=== PATIENT | female | born 1965 | race Two or more races ===

== ENCOUNTER 2024-07-14 07:10 | Inpatient (IN) | payer MEDICAID, OTHER ==
[~2024-07-14] VITALS: Ht 160 cm; Wt 79.1 kg
[2024-07-14 07:48] VITALS: PULSE 104; RESP 18; O2SAT 95
[2024-07-14] MEDS: ACETAMINOPHEN 325 MG TAB PO ONE (07:53)
[2024-07-14 08:23] LABS: Basophils # (auto) 0.1 10 ^3/uL (0-0.2); Basophils % (auto) 1.3 % (0.0-2.0); Eosinophils # (auto) 0 10 ^3/uL (0-0.8); Hematocrit 33.4 % (36.0-46.0); Hemoglobin 11.6 g/dL (12.2-16.2); Lymphocytes # (auto) 1.1 10 ^3/uL (0.4-5.4); Lymphocytes % (auto) 12.3 % (10.0-50.0); Mean Corpuscular Hemoglobin 27.9 pg (28.0-32.0); Mean Corpuscular Hgb Conc. 34.6 g/dL (32.0-36.0); Mean Corpuscular Volume 80.7 fL (80.0-100.0); Monocytes % (auto) 10.7 % (0.0-12.0); Neutrophils # (auto) 6.7 10 ^3/uL (1.6-8.6); Neutrophils % (auto) 75.7 % (37.0-80.0); Platelet Count (auto) 160 10^3/uL (140-450); Red Blood Cells 4.14 10^6/uL (4.0-5.20); Red Cell Distribution Width 15.8 % (11.8-14.3); White Blood Cell 8.9 10^3/uL (4.4-10.8)
[2024-07-14 08:24] LABS: Chloride 100 mmol/L (98-107); Potassium 4.3 mmol/L (3.5-5.1)
[2024-07-14 08:25] LABS: Anion Gap 9 (5-15); Carbon Dioxide 20 mmol/L (20-31)
[2024-07-14 08:26] LABS: Calcium 10.2 mg/dL (8.7-10.4)
[2024-07-14 08:29] LABS: Sodium 129 mmol/L (136-145)
[2024-07-14 08:30] LABS: BUN/Creatinine Ratio 14.5 (10.0-20.0); Blood Urea Nitrogen 11 mg/dL (9-23)
--- NOTE | 2024-07-14 08:30 | DVH ---
EXAM: CT HEAD WITHOUT CONTRAST HISTORY: DIZZINESS COMPARISON: None TECHNIQUE: Axial images of the head were obtained and reformatted in coronal and sagittal planes. All CT scans at this medical facility are performed using dose modulation techniques as appropriate t o a performed exam including the following: Automated exposure control was utilized; adjustment of th e MA and/or KV according to patient size; and use of iterative reconstruction technique. CT Dose: CTDI volume is 48 mGy. Dose-length product is 799 mGy*cm FINDINGS: There is no evidence of acute intracranial hemorrhage, mass, mass effect midline shift. There is no h ydrocephalus or extra-axial fluid collection. Rivera-white matter differentiation is maintained. The visualized paranasal sinuses and mastoid air cells are clear. The calvarium is intact. IMPRESSION: 1. No acute intracranial process. HS:Y
--- NOTE | 2024-07-14 08:32 | ED.PDOC ---
Ariana. trauma (HPI) HPI Comments 58-year-old female, brought in by daughter, with past medical history of epilepsy and dementia presents in the emergency department for chief complaint of generalized weakness. Per patient's daughter, patient has been experiencing increasing symptoms of disorientation, confusion, and unsteadiness x1day. Daughter endorses, patient is unable to ambulate with steady gait and frequently falls over when using the restroom. Per Patient's daughter, this is not patients baseline and is unaware if patient has had seizure in the past couple of days resulting in increased disorientation. No other symptoms or modifiers present at this time. Time Seen by MD: 07:20 Reviewed notes: Nurses Notes, Medications, Allergies Allergies: Coded Allergies: Belladonna (Verified Allergy, Unknown, 07/14/24) Home Meds Reported Medications Chlorthalidone (Chlorthalidone) 25 Mg Tab, 1 TAB PO DAILY 07/14/24 Pantoprazole Sodium Sesquihydr (Pantoprazole Sodium) 40 Mg Tab, 1 TAB PO DAILY 07/14/24 Atorvastatin Calcium (ATORVASTATIN CALCIUM) 20 Mg Tab, 1 TAB PO DAILY 07/14/24 Semaglutide (Rybelsus) 3 Mg Tab, 1 TAB PO DAILY 07/14/24 Information Source: Patient Mode of Arrival: Ambulatory Severity: Moderate Timing: Days Duration: Since onset Prehospital treatment: None Location: None Location of laceration: None Associated signs and symtoms: None Past Medical History PAST MEDICAL HISTORY: Denies Surgical History: Denies all surgeries 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 Family History Family History: Unknown Social History Smoker: Non-Smoker Alcohol: Denies ETOH Use Drugs: Denies Drug Use Lives In: Home All Other Systems: Reviewed and Negative ( PER HPI) Physical Exam General Appearance: No Apparent Distress, Normal HEENT: Normal ENT Inspection, Pharynx Normal Neck: Full Range of Motion, Non-Tender, Normal, Normal Inspection Respiratory: Chest Non-Tender, Lungs Clear, No Accessory Muscle Use, No Respiratory Distress, Normal Breath Sounds Cardiovascular: No Edema, No Murmur, No Gallop, Normal Peripheral Pulses, Regular Rate/Rhythm Breast Exam: Deferred Gastrointestinal: No Organomegaly, Non Tender, No Pulsatile Mass, Normal Bowel Sounds, Soft Genitalia: Deferred Pelvic: Deferred Rectal: Deferred Extremities: No calf tenderness, Normal capillary refill, Normal inspection, Normal range of motion, Non-tender, No pedal edema Musculoskeletal : Apperance: Normal Neurologic: Alert, No Motor Deficits, Normal Affect, Normal Mood, No Sensory Deficits, Other (Unclear speech. Difficult to understand the patient. No facial droop no slurred speech. Moving all extremities. 5/5 strength bilateral upper and lower extremities.) Cerebellar Function: Normal Reflexes: Normal Skin: Dry, Normal Color, Warm Lymphatic: No Adenopathy Was a procedure done? Was a procedure done?: No EKG EKG : Comments Sinus tachycardia rate of 102, no significant ST changes. Differential Diagnosis Multiple Trauma: N/A Neck Injury: N/A X-Ray, Labs, Meds, VS Vital Signs Date Time Temp Pulse Resp B/P (MAP) Pulse Ox O2 Delivery O2 Flow Rate FiO2 07/14/24 07:53 102 07/14/24 07:53 100.7 07/14/24 07:48 104 18 95 Room Air* 0 21 07/14/24 07:48 100.7 104 18 138/75 (96) 95 100.7 07/14/24 07:48 100.7 104 18 138/75 (96) 95 100.7 Lab Test 07/14/24 08:53 07/14/24 08:00 Range/Units Troponin I High Sensitivity 4 5 </=34 ng/L White Blood Count 8.9 4.4-10.8 10^3/uL Red Blood Count 4.14 4.0-5.20 10^6/uL Hemoglobin 11.6 L 12.2-16.2 g/dL Hematocrit 33.4 L 36.0-46.0 % Mean Corpuscular Volume 80.7 80.0-100.0 fL Mean Corpuscular Hemoglobin 27.9 L 28.0-32.0 pg Mean Corpuscular Hemoglobin Concent 34.6 32.0-36.0 g/dL Red Cell Distribution Width 15.8 H 11.8-14.3 % Platelet Count 160 140-450 10^3/uL Mean Platelet Volume 9.6 6.9-10.8 fL Neutrophils (%) (Auto) 75.7 37.0-80.0 % Lymphocytes (%) (Auto) 12.3 10.0-50.0 % Monocytes (%) (Auto) 10.7 0.0-12.0 % Eosinophils (%) (Auto) 0.0 0.0-7.0 % Basophils (%) (Auto) 1.3 0.0-2.0 % Neutrophils # (Auto) 6.7 1.6-8.6 10 ^3/uL Lymphocytes # (Auto) 1.1 0.4-5.4 10 ^3/uL Monocytes # (Auto) 1.0 0-1.3 10 ^3/uL Eosinophils # (Auto) 0 0-0.8 10 ^3/uL Basophils # (Auto) 0.1 0-0.2 10 ^3/uL Nucleated Red Blood Cells 0.0 % Sodium Level 129 L 136-145 mmol/L Potassium Level 4.3 3.5-5.1 mmol/L Chloride Level 100 98-107 mmol/L Carbon Dioxide Level 20 20-31 mmol/L Anion Gap 9 5-15 Blood Urea Nitrogen 11 9-23 mg/dL Creatinine 0.76 0.550-1.02 mg/dL Glomerular Filtration Rate Calc 91 >90 mL/min BUN/Creatinine Ratio 14.5 10.0-20.0 Serum Glucose 115 H 74-106 mg/dL Calcium Level 10.2 8.7-10.4 mg/dL Current Medications Medications (Trade) Dose Ordered Sig/Elizabet Route Start Time Stop Time Status Last Admin Acetaminophen (Tylenol Tablet) 650 mg ONCE ONCE PO 07/14/24 07:45 07/14/24 07:47 DC 07/14/24 07:53 [place] [id number] Ph: [phone] DIAGNOSTIC IMAGING Diagnostic Imaging Report : [id number] Signed PATIENT: ANNIA MCINTOSH LACCT: [id number] UNIT: [id number] : 1965 LOC: ER ROOM / BED: / AGE / SEX: 58 / F ADM STATUS: REG ER SERVICE [id number] ORDERING PHYSICIAN: TATI DRISCOLL MD PROCEDURE(s): HWOCT - HEAD WITHOUT CONTRAST REASON: DIZZINESS ORDER NUMBER(s): [id number], ACCESSION NUMBER(s): [id number] EXAM: CT HEAD WITHOUT CONTRAST HISTORY: DIZZINESS COMPARISON: None TECHNIQUE: Axial images of the head were obtained and reformatted in coronal and sagittal planes. All CT scans at this medical facility are performed using dose modulation techniques as appropriate to a performed exam including the following: Automated exposure control was utilized; adjustment of the MA and/or KV according to patient size; and use of iterative reconstruction technique. CT Dose: CTDI volume is 48 mGy. Dose-length product is 799 mGy*cm FINDINGS: There is no evidence of acute intracranial hemorrhage, mass, mass effect midline shift. There is no hydrocephalus or extra-axial fluid collection. Rivera-white matter differentiation is maintained. The visualized paranasal sinuses and mastoid air cells are clear. The calvarium is intact. IMPRESSION: 1. No acute intracranial process. HS:Y ATED BY: JOSÉ MIGUEL YEUNG MD DICTATED DATE/TIME: 07/14/24827 SIGNED BY: JOSÉ MIGUEL YEUNG MD SIGNED DATE/TIME: 07/14/24827 CC: 58-year-old female presents here status post falls. Daughter states x1 day she has been acutely more confused and having frequent falls. She states anytime she gets up to go urinate she then falls. She states this is unlike her at this time blood work has been done which is largely unremarkable. Urine with no evidence of infection. CT scan of the brain has been done with no evidence of hemorrhage. At this time the exact cause of her acute confusion and falls is unclear. At this time medical team has been consulted for admission. She does have a known history of seizures it is possible she is having micro seizures. Patient took her regular dose of valproic acid in the ER per my order. Time of 1ST Reevaluation: 09:20 Reevaluation 1ST: Unchanged Patient Education/Counseling: Diagnosis, Treatment Family Education/Counseling: No Family Present Departure 1 Departure Time of Disposition: 08:26 Impression: Primary Impression: Fall Qualified Codes: W19.XXXA - Unspecified fall, initial encounter Additional Impression: Encephalopathy Qualified Codes: G93.40 - Encephalopathy, unspecified Disposition: 09 ADMITTED INPATIENT Condition: Fair Critical Care Note Critical Care Time?: No Stability Stability form required: No Heart Score Heart Score: Heart Score Response (Comments) Value History N/A 0 EKG N/A 0 Age N/A 0 Risk Factors N/A 0 Troponin N/A 0 Total 0 I personally scribed for TATI DRISCOLL MD ([email or web address]) on 07/14/24 at 08:36. Electronically submitted by Clara Payan ([email or web address]). I personally scribed for TATI DRISCOLL MD ([email or web address]) on 07/14/24 at 13:19. Electronically submitted by Clara Payan ([email or web address]). TATI DRISCOLL MD Jul 14, 2024 08:32
[2024-07-14 08:33] LABS: Glucose 115 mg/dL (74-106)
[2024-07-14] MEDS ORDERED: ONDANSETRON HCL 4 MG/2 ML VIAL IV PRN (09:00)
[2024-07-14] MEDS ORDERED: NITROGLYCERIN 0.4 MG SL TAB SL PRN (09:00)
[2024-07-14] MEDS ORDERED: SODIUM CHLORIDE 0.9% 1,000 ML IV SCH (09:00)
[2024-07-14] MEDS ORDERED: SEMA3TAB2 PO (09:27)
[2024-07-14] MEDS ORDERED: PANT40T PO (09:27)
[2024-07-14] MEDS ORDERED: CHLO25TA2 PO (09:27)
[2024-07-14] MEDS ORDERED: ATOR20TA50 PO (09:27)
--- NOTE | 2024-07-14 09:46 | DVHHP2 ---
History of Present Illness Reason for Visit: Dizziness and weakness History of Present Illness Vannesa Nation is a 58-year-old female with past medical history of epilepsy, dementia, , and tonsillectomy who presents to the ED with dizziness, weakness, disorientation, confusion, and unsteadiness for the last 2 days. Patient's daughter Jacklyn the bedside states that her mom the last 2 weeks has been falling. She states that the other sister lives with her mom. Upon examination when asked patient questions about her name date of she states that she does not remember. Patient is awake and answering questions just unable to tell me her name and date of . Patient's daughter also states the patient has been seeing a psychiatrist regarding her medications and her complaints of auditory and visual hallucina tions. She reports that the psychiatrist has been adjusting her medications due to the side effects that it has been causing her mom. Patient is declining any pain throughout her body. Patient's daughter reported that she had some nausea for the last 2 days and has not been eating well. Patient denies any recent travels, recent sick contacts, recent ingestion of spoiled food, chest pain, shortness of breath, fever, chills, abdominal pain, nausea, vomiting, or urinary symptoms. Daughter also states that her mom's still vapes and is a recovering addict for the last 4 years. 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) Past Surgical History: , Tonsillectomy Family History: DM, Other (Dad with brain tumor and diabetes) Smoke: <1 pack per day (Vapes) ALCOHOL: none (Quit) Drugs: None (Quit) Lives: with Family Domestic Violence: Neg Review of Systems Constitutional: Yes: Weakness, Other (Disorientation and unsteadiness) Neurological: Confusion Allergies: Coded Allergies: Belladonna (Verified Allergy, Unknown, 07/14/24) Medications Current Medications Medications Dose Ordered Sig/Elizabet Route Start Time Stop Time Status Last Admin Dose Admin Sodium Chloride 1,000 ml @ 100 mls/hr Q10H IV 07/14/24 09:00 UNV Ondansetron HCl 4 mg Q4HP PRN IV 07/14/24 09:00 UNV Acetaminophen 650 mg Q6HP PRN PO 07/14/24 09:00 UNV Nitroglycerin 0.4 mg Q5MINP PRN SL 07/14/24 09:00 UNV Morphine Sulfate 2 mg Q30M PRN IV 07/14/24 09:00 UNV Atorvastatin Calcium 20 mg DAILY PO 07/14/24 10:00 UNV Chlorthalidone 25 mg DAILY PO 07/14/24 10:00 UNV Pantoprazole Sodium 40 mg DAILY PO 07/14/24 10:00 UNV Patient Own Medication 1 tab DAILY PO 07/14/24 10:00 UNV Exam Vital Signs Vital Signs Date Time Temp Pulse Resp B/P (MAP) Pulse Ox O2 Delivery O2 Flow Rate FiO2 07/14/24 07:53 102 07/14/24 07:53 100.7 07/14/24 07:48 18 95 Room Air* 0 21 07/14/24 07:48 138/75 (96) General Appearance: Alert, Cooperative, No acute distress HEENT: Atraumatic, PERRLA, EOMI, Mucous membr. moist/pink Respiratory: Normal air movement Cardiovascular: Normal S1, Normal S2 Abdominal: Soft Extremities: No clubbing, No cyanosis, Normal pulses Neuro: Normal speech, Normal tone, Sensation intact Psych/Mental Status: Mood NL Labs/Xrays Labs Test 07/14/24 08:53 07/14/24 08:00 Range/Units Troponin I High Sensitivity 4 </=34 ng/L White Blood Count 8.9 4.4-10.8 10^3/uL Red Blood Count 4.14 4.0-5.20 10^6/uL Hemoglobin 11.6 L 12.2-16.2 g/dL Hematocrit 33.4 L 36.0-46.0 % Mean Corpuscular Volume 80.7 80.0-100.0 fL Mean Corpuscular Hemoglobin 27.9 L 28.0-32.0 pg Mean Corpuscular Hemoglobin Concent 34.6 32.0-36.0 g/dL Red Cell Distribution Width 15.8 H 11.8-14.3 % Platelet Count 160 140-450 10^3/uL Mean Platelet Volume 9.6 6.9-10.8 fL Neutrophils (%) (Auto) 75.7 37.0-80.0 % Lymphocytes (%) (Auto) 12.3 10.0-50.0 % Monocytes (%) (Auto) 10.7 0.0-12.0 % Eosinophils (%) (Auto) 0.0 0.0-7.0 % Basophils (%) (Auto) 1.3 0.0-2.0 % Neutrophils # (Auto) 6.7 1.6-8.6 10 ^3/uL Lymphocytes # (Auto) 1.1 0.4-5.4 10 ^3/uL Monocytes # (Auto) 1.0 0-1.3 10 ^3/uL Eosinophils # (Auto) 0 0-0.8 10 ^3/uL Basophils # (Auto) 0.1 0-0.2 10 ^3/uL Nucleated Red Blood Cells 0.0 % Sodium Level 129 L 136-145 mmol/L Potassium Level 4.3 3.5-5.1 mmol/L Chloride Level 100 98-107 mmol/L Carbon Dioxide Level 20 20-31 mmol/L Anion Gap 9 5-15 Blood Urea Nitrogen 11 9-23 mg/dL Creatinine 0.76 0.550-1.02 mg/dL Glomerular Filtration Rate Calc 91 >90 mL/min BUN/Creatinine Ratio 14.5 10.0-20.0 Serum Glucose 115 H 74-106 mg/dL Calcium Level 10.2 8.7-10.4 mg/dL EXAM: CT HEAD WITHOUT CONTRAST HISTORY: DIZZINESS COMPARISON: None TECHNIQUE: Axial images of the head were obtained and reformatted in coronal and sagittal planes. All CT scans at this medical facility are performed using dose modulation techniques as appropriate to a performed exam including the following: Automated exposure control was utilized; adjustment of the MA and/or KV according to patient size; and use of iterative reconstruction technique. CT Dose: CTDI volume is 48 mGy. Dose-length product is 799 mGy*cm FINDINGS: There is no evidence of acute intracranial hemorrhage, mass, mass effect midline shift. There is no hydrocephalus or extra-axial fluid collection. Rivera-white matter differentiation is maintained. The visualized paranasal sinuses and mastoid air cells are clear. The calvarium is intact. IMPRESSION: 1. No acute intracranial process. Assessment/Plan Assessment/Plan Assessment Autonomic imbalance Generalized weakness Failure to thrive Hyponatremia Pyrexia Vape use History of polysubstance abuse and recovering addict for the last 4 years History of epilepsy History of dementia ? Schizophrenia versus depression versus with a psychological issue Plan Admit to med surge Antipyretics Troponin noted EKG CT head noted UA pending Orthostatics Ultrasound carotid Echo ordered IV fluids Repeat BMP Lactic level Blood cultures Chest x-ray ordered Diet Patient's daughter will clarify which medications the patient is currently taking as medications have been adjusted by psychiatrist PT eval DVT prophylaxis-Lovenox PUD prophylaxis-H2 blockers Discussed plan of care with patient, patient's daughter, and nurse Dietary consult Counseled patient on continuous cessation of polysubstance use Counseled patient on cessation of a abuse Plan discussed with: Patient, Daughter My Orders Orders - MARSHA PUGA 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 Procedure Category Date Status Time Echo 2d Mode Cardiac US 07/14/24 Logged DOP 08:58 Carotid Duplx W Color US 07/14/24 Logged DOP 08:58 Orthostatic Vital ORDERS 07/14/24 Transmitted Signs 08:58 Sodium Chloride 0.9% PHA 07/14/24 Logged 09:00 Admit ADMIT 07/14/24 Transmitted 08:58 Allergies TIFFANIE 07/14/24 In Process 08:58 Code Status CODE 07/14/24 Transmitted 08:58 Ondansetron Hcl PHA 07/14/24 Logged (Zofran) 09:00 Complete Blood Count LAB 07/15/24 Verified 04:00 Comprehensive LAB 07/15/24 Verified Metabolic Panel 04:00 Cardiac DIET 07/14/24 Transmitted Diet-2gna,Lofat,Lochol Breakfast Acetaminophen Tablet PHA 07/14/24 Logged (Tylenol Tablet) 09:00 Nitroglycerin PHA 07/14/24 Logged Sublingual (Ntrostat 09:00 Morphine Sulfate PHA 07/14/24 Logged Injection 09:00 Stat Ekg For Chest TIFFANIE 07/14/24 In Process Pain 08:58 Notify Of Changes [facility] 07/14/24 In Process From Base 08:58 Slip Cover Maker For TIFFANIE 07/14/24 In Process 24 Hours 08:58 Emergency Dysrhythmia TIFFANIE 07/14/24 In Process Protocol 08:58 Rhythm Strips Once [facility] 07/14/24 In Process Every Shift 08:58 Oxygen By Nasal RT 07/14/24 Transmitted Cannula 08:58 Lactic Acid W/ Reflex LAB 07/14/24 Logged Order 08:58 Blood Culture NEREYDA 07/14/24 Logged 08:58 Chest Xray 1 View XY 07/14/24 Logged 08:58 Atorvastatin (Lipitor) PHA 07/14/24 Logged 10:00 Chlorthalidone PHA 07/14/24 Logged (Chlorthalidone) 10:00 Pantoprazole Tablet PHA 07/14/24 Logged (Protonix Tablet) 10:00 (Nf) Semaglutide PHA 07/14/24 Logged (Rybelsus) 10:00 NS PHA 07/14/24 Verified 09:30 Basic Metabolic Panel LAB 07/14/24 Verified 14:00 Communication Order ORDERS 07/14/24 Verified 09:28 Date of Service: Jul 14, 2024 Billing Provider: MARSHA PUGA Common Visit Codes: [id number] INP/OBS CARE (HIGH) MARSHA PUGA Jul 14, 2024 09:46
[2024-07-14] MEDS ORDERED: MORPHINE SULFATE 4 MG/ML SYR/VIAL IV PRN (10:00)
--- NOTE | 2024-07-14 10:06 | DVH ---
XY CHEST XRAY 1 VIEW, HISTORY: r/o pna COMPARISON: None None TECHNICAL DATA: 1 view of the chest was obtained. FINDINGS: Lines and tubes: None Cardiomediastinal silhouette: normal Pulmonary vasculature: normal Lung expansion: normal Lung airspace: normal Lung interstitium: normal Pleura: normal Pneumothorax: no Bones: Unremarkable Other: no IMPRESSION: No acute intrathoracic abnormality.
[2024-07-14] MEDS: FAMOTIDINE (10MG/ML) 2ML VL IV SCH (10:12)
[2024-07-14] MEDS: PANTOPRAZOLE 40 MG TAB PO SCH (10:13)
[2024-07-14] MEDS: SEMAGLUTIDE 3 MG PO SCH (10:13)
[2024-07-14] MEDS: ENOXAPARIN SOD 40 MG/0.4 ML SYRINGE SC SCH (10:14)
[2024-07-14] MEDS: CHLORTHALIDONE 25 MG TAB PO SCH (10:21)
[2024-07-14] MEDS: SODIUM CHLORIDE 0.9% 1,000 ML IV SCH (10:22)
[2024-07-14] MEDS: ACETAMINOPHEN 325 MG TAB PO PRN (13:46)
[2024-07-14 14:23] LABS: Chloride 99 mmol/L (98-107); Potassium 4.1 mmol/L (3.5-5.1)
[2024-07-14 14:24] LABS: Anion Gap 8 (5-15); Carbon Dioxide 22 mmol/L (20-31)
[2024-07-14 14:25] LABS: Calcium 9.6 mg/dL (8.7-10.4); Sodium 129 mmol/L (136-145)
[2024-07-14 14:28] LABS: Urine Bacteria FEW /hpf (None Seen); Urine Blood TRACE /uL (Negative); Urine Clarity Clear (Clear); Urine Color Dark-Yellow (Yellow); Urine Protein, UAD 1+ (Negative); Urine Squamous Epithelial Cell FEW /hpf (<5); Urine Urobilinogen 6 mg/dL (Negative); Urine WBC 1 /HPF (0-5); Urine pH 6.5 (5.0-9.0)
[2024-07-14 14:30] LABS: BUN/Creatinine Ratio 11.8 (10.0-20.0); Glucose 106 mg/dL (74-106)
[2024-07-14 14:31] LABS: Blood Urea Nitrogen 9 mg/dL (9-23)
--- NOTE | 2024-07-14 14:56 | DVH ---
US CAROTID DOPPLER CLINICAL INDICATION: r/o occlusion TECHNIQUE: Multiple grayscale, color Doppler and spectral Doppler ultrasound images were obtained thr oughout both carotid systems. COMPARISON: None FINDINGS: RIGHT: CCA PSV: 77 cm/s ECA PSV: 66 cm/s ICA PSV: 74 cm/s ICA EDV: 16 cm/s ICA/CCA Ratio: 1.0 Vertebral artery: Patent, antegrade flow. Grayscale images demonstrate no significant plaque or visible stenosis. Spectral analysis demonstrate s no hemodynamically significant CCA or ICA stenosis. LEFT: CCA PSV: 108 cm/s ECA PSV: 145 cm/s ICA PSV: 97 cm/s ICA EDV: 24 cm/s ICA/CCA Ratio: 0.9 Vertebral artery: Patent, antegrade flow. Grayscale images demonstrate no significant plaque or visible stenosis. Spectral analysis demonstrate s no hemodynamically significant CCA or ICA stenosis. IMPRESSION: No evidence of hemodynamically significant CCA or ICA stenosis.
[2024-07-14 16:53] LABS: Chloride 102 mmol/L (98-107); Potassium 3.6 mmol/L (3.5-5.1)
[2024-07-14 16:54] LABS: Anion Gap 6 (5-15); Carbon Dioxide 22 mmol/L (20-31)
[2024-07-14 16:55] LABS: Calcium 8.9 mg/dL (8.7-10.4)
[2024-07-14 16:59] LABS: BUN/Creatinine Ratio 17.6 (10.0-20.0); Blood Urea Nitrogen 12 mg/dL (9-23)
[2024-07-14 17:00] LABS: Glucose 109 mg/dL (74-106); Sodium 130 mmol/L (136-145)
[2024-07-14] MEDS ORDERED: PHEN1CAP38 PO (18:35)
[2024-07-14] MEDS ORDERED: DIVA500T13 PO (18:35)
[2024-07-14] MEDS: IBUPROFEN 400 MG TAB PO PRN (20:15)
[2024-07-14] MEDS: ACETAMINOPHEN IV 1000 MG/100ML (10MG/ML) IV ONE (20:32)
[2024-07-14] MEDS: cefTRIAXone 1GM/50ML D5W 50 ML IV SCH (20:36)
[2024-07-14 21:13] LABS: Anion Gap 6 (5-15); BUN/Creatinine Ratio 14.5 (10.0-20.0); Blood Urea Nitrogen 9 mg/dL (9-23); Carbon Dioxide 21 mmol/L (20-31); Chloride 103 mmol/L (98-107); Glucose 104 mg/dL (74-106); Potassium 3.6 mmol/L (3.5-5.1)
[2024-07-14 21:18] LABS: Alanine Aminotransferase 164 U/L (7-40); Albumin 2.8 g/dL (3.2-4.8); Alkaline Phosphatase 146 U/L (46-116); Aspartate Aminotransferase 254 U/L (13-40); Bilirubin, Total 2.6 mg/dL (0.2-1.0); Sodium 130 mmol/L (136-145); Total Protein 5.5 g/dL (5.7-8.2)
[2024-07-14 21:28] VITALS: BP 105/50; PULSE 56; RESP 18; TEMP 97.6; O2SAT 96
[2024-07-14] MEDS ORDERED: [UNRECOGNIZED DRUG - CODE] PO (22:12)
[2024-07-14] MEDS ORDERED: FLUT1INH2 INH (22:12)
[2024-07-14] MEDS ORDERED: ALBU108A5 INH (22:12)
[2024-07-14] MEDS ORDERED: BUSP15TA60 PO (22:12)
[2024-07-14] MEDS ORDERED: [UNRECOGNIZED DRUG - CODE] PO (22:12)
[2024-07-14] MEDS ORDERED: SPIR25TA8 PO (22:12)
[2024-07-14] MEDS ORDERED: HYDR50CA2 PO (22:12)
[2024-07-14] MEDS ORDERED: ARIP10TA30 PO (22:12)
[2024-07-14] MEDS: ATORVASTATIN 20 MG TAB PO SCH (23:07)
[2024-07-15] VITALS (7 sets, daily range): BP systolic 92–133; BP diastolic 44–62; PULSE 51–86; RESP 14–20; TEMP 97.1–101.2; O2SAT 94–99
[2024-07-15 05:39] LABS: Basophils # (auto) 0 10 ^3/uL (0-0.2); Basophils % (auto) 0.4 % (0.0-2.0); Eosinophils # (auto) 0 10 ^3/uL (0-0.8); Eosinophils % (auto) 0.1 % (0.0-7.0); Hematocrit 29.3 % (36.0-46.0); Hemoglobin 9.9 g/dL (12.2-16.2); Lymphocytes # (auto) 0.6 10 ^3/uL (0.4-5.4); Lymphocytes % (auto) 8.1 % (10.0-50.0); Mean Corpuscular Hemoglobin 27.8 pg (28.0-32.0); Mean Corpuscular Hgb Conc. 33.7 g/dL (32.0-36.0); Mean Corpuscular Volume 82.5 fL (80.0-100.0); Monocytes # (auto) 0.6 10 ^3/uL (0-1.3); Monocytes % (auto) 8.8 % (0.0-12.0); Neutrophils % (auto) 82.6 % (37.0-80.0); Platelet Count (auto) 121 10^3/uL (140-450); Red Blood Cells 3.55 10^6/uL (4.0-5.20); Red Cell Distribution Width 15.9 % (11.8-14.3); White Blood Cell 7.3 10^3/uL (4.4-10.8)
[2024-07-15 05:58] LABS: Anion Gap 5 (5-15); BUN/Creatinine Ratio 14.3 (10.0-20.0); Blood Urea Nitrogen 10 mg/dL (9-23); Calcium 9.1 mg/dL (8.7-10.4); Carbon Dioxide 23 mmol/L (20-31); Chloride 104 mmol/L (98-107); Glucose 93 mg/dL (74-106); Potassium 3.9 mmol/L (3.5-5.1)
[2024-07-15 05:59] LABS: Alanine Aminotransferase 144 U/L (7-40); Albumin 2.7 g/dL (3.2-4.8); Alkaline Phosphatase 145 U/L (46-116); Aspartate Aminotransferase 192 U/L (13-40); Sodium 132 mmol/L (136-145); Total Protein 5.4 g/dL (5.7-8.2)
[2024-07-15 06:01] LABS: Bilirubin, Total 2.2 mg/dL (0.2-1.0)
[2024-07-15 10:23] LABS: Anion Gap 7 (5-15); Calcium 8.9 mg/dL (8.7-10.4); Carbon Dioxide 23 mmol/L (20-31); Chloride 104 mmol/L (98-107); Potassium 3.5 mmol/L (3.5-5.1); Sodium 134 mmol/L (136-145)
[2024-07-15 10:29] LABS: BUN/Creatinine Ratio 14.8 (10.0-20.0)
[2024-07-15 10:36] LABS: Blood Urea Nitrogen 9 mg/dL (9-23); Glucose 106 mg/dL (74-106)
--- NOTE | 2024-07-15 15:52 | DVHPN2 ---
Subjective I am assuming the care of the patient from today onwards who was under the care of the hospitalist team. CT head is negative. Patient is here for multiple falls as well as disorientation. Patient does have underlying Alzheimer dementia Reviewed: Care Plan Changes from previous H/P or p: No Changes Objective Vitals Vital Signs Date Time Temp Pulse Resp B/P (MAP) Pulse Ox O2 Delivery O2 Flow Rate FiO2 07/15/24 08:30 97.1 70 14 98/62 (74) 97 97.1 07/15/24 08:00 Room Air* 0 21 Intake/Output Intake and Output 07/15/24 07:00 Intake Total 4500 ml Balance 4500 ml Intake Oral 100 ml IV Total 4400 ml Exam HEENT pupils are reactive Neck is supple CV is S1-S2 regular rate and rhythm Respiratory diminished breath sounds bases GI positive bowel sound Extremity no edema DETECTIVE CAPTAIN minimally following commands Medications Current Medications Medications Dose Ordered Sig/Elizabet Route Start Time Stop Time Status Last Admin Dose Admin Ondansetron HCl 4 mg Q4HP PRN IV 07/14/24 09:00 Acetaminophen 650 mg Q6HP PRN PO 07/14/24 09:00 07/14/24 13:46 650 MG Nitroglycerin 0.4 mg Q5MINP PRN SL 07/14/24 09:00 Morphine Sulfate 2 mg Q30M PRN IV 07/14/24 10:00 Atorvastatin Calcium 20 mg HS PO 07/14/24 22:00 07/14/24 23:07 20 MG Chlorthalidone 25 mg DAILY PO 07/14/24 10:00 07/15/24 09:02 25 MG Pantoprazole Sodium 40 mg DAILY PO 07/14/24 10:00 07/15/24 09:02 40 MG Patient Own Medication 1 tab DAILY PO 07/14/24 10:00 07/14/24 10:13 1 TAB Sodium Chloride 1,000 ml @ 200 mls/hr Q5H IV 07/14/24 09:30 07/15/24 12:43 200 MLS/HR Enoxaparin Sodium 40 mg DAILY SC 07/14/24 10:00 07/15/24 11:34 40 MG Famotidine 20 mg DAILY IV 07/14/24 10:00 07/15/24 09:01 20 MG Ibuprofen 400 mg Q6HP PRN PO 07/14/24 18:45 07/14/24 20:15 400 MG Ceftriaxone Sodium 50 ml @ 100 mls/hr DAILY@09 IV 07/14/24 20:30 07/15/24 09:01 100 MLS/HR Laboratory Results Laboratory Tests 07/15/24 05:06 07/15/24 09:45 Chemistry Test 07/14/24 16:25 07/14/24 20:38 07/15/24 05:06 07/15/24 09:45 Calcium Level 8.9 mg/dL (8.7-10.4) 9.0 mg/dL (8.7-10.4) 9.1 mg/dL (8.7-10.4) 8.9 mg/dL (8.7-10.4) Albumin 2.8 g/dL (3.2-4.8) L 2.7 g/dL (3.2-4.8) L Total Protein 5.5 g/dL (5.7-8.2) L 5.4 g/dL (5.7-8.2) L LFT Test 07/14/24 20:38 07/15/24 05:06 Alanine Aminotransferase (ALT) 164 U/L (7-40) H 144 U/L (7-40) H Alkaline Phosphatase 146 U/L (46-116) H 145 U/L (46-116) H Aspartate Amino Transferase (AST) 254 U/L (13-40) H 192 U/L (13-40) H Total Bilirubin 2.6 mg/dL (0.2-1.0) H 2.2 mg/dL (0.2-1.0) H Urinalysis Test 07/14/24 14:08 Urine Color Dark-yellow (Yellow) Urine Clarity Clear (Clear) Urine pH 6.5 (5.0-9.0) Urine Specific [place] 1.020 (1.001-1.035) Urine Protein 1+ (Negative) H Urine Ketones Negative (Negative) Urine Blood Trace /uL (Negative) H Urine Nitrite Negative (Negative) Urine Bilirubin 2+ (Negative) H Urine Urobilinogen 6 mg/dL (Negative) Urine Leukocyte Esterase Negative /uL (Negative) Urine RBC 5 /hpf (0 - 4) Urine Microscopic WBC 1 /HPF (0-5) Urine Squamous Epithelial Cells Few /hpf (<5) Urine Bacteria Few /hpf (None Seen) H Urine Glucose Normal mg/dL (Normal) Microbiology Microbiology Date/Time Source Procedure Growth Status 07/14/24 09:40 Blood Blood Culture - Preliminary NO GROWTH AFTER 24 HOURS OF INCUBATION. Resulted Assessment/Plan Assessment/Plan 58-year-old female with a known history of epilepsy, Alzheimer dementia, with a previous history of polysubstance abuse presented to the hospital with a generalized weakness and multiple falls found to have 1. Generalized weakness 2. Recurrent falls, check TSH RPR vitamin B12 and folic acid 3. Transaminitis, hold atorvastatin, right upper quadrant abdominal ultrasound and check acute hepatitis panel. 4. Epilepsy 5. Alzheimer dementia 6. Previous history of polysubstance abuse -check orthostatic vitals, check TSH, RPR, vitamin B12-, folic acid, neurology consultation Physical therapy evaluation and treatment. Plan discussed with: Patient, Other My Orders Orders - RAMESH JEFFERY MD Procedure Category Date Status Time * Neurology Consult CONS 07/15/24 Transmitted 15:48 Date of Service: Jul 15, 2024 Billing Provider: RAMESH JEFFERY MD Common Visit Codes: [id number] INP/OBS CARE(HIGH) RAMESH JEFFERY MD Jul 15, 2024 15:52
--- NOTE | 2024-07-15 19:09 | DVHSR ---
APPROVED REPORT EXAM: Two-dimensional and M-mode echocardiogram with Doppler and color Doppler. Blood Pressure: 92/52 mmHg INDICATION Dizziness and Vertigo RISK FACTORS Height: 5'3, Weight: 174 DIMENSIONS LVDd4.4 (3.8-5.7cm)LA (2D)3.9 (1.9-4.0cm)Aortic Root3.0 (2.0-3.7cm) LVDs3.0 (2.5-4.0cm)LA (MM) (1.9-4.0cm)Aortic Cusp Exc1.6 (1.5-2.0cm) EF (%) 55.0 (55-70%)Rt. Atrium3.4 (1.9-4.0cm)Asc. Aorta cm IVSd1.0 (0.7-1.1cm)RV (D)5.5 (1.8-2.4cm) PWd0.9 (0.7-1.1cm) Mitral Valve MitralMitral Stenosis E wave0.94m/sMV Mean GR.mmHg A wave1.05m/sMV Peak GR.104mmHg E/A ratio0.92D MVAcm2 DECEL [id number] 1/2 Timems Aortic Valve Aortic ValveAortic Stenosis V11.07m/Vicenta Mean GR.7mmHg V21.82m/Vicenta Peak GR.13mmHg LVOT Diameter2.0 (1.8-2.4cm)Doppler AVA1.85cm2 Pulmonic Valve V21.17m/s Tricuspid Valve TR Velocity2.61m/s [id number] Conclusion LV EF IS 65% NORMAL VALVES SLIGHTLY DILATED RV NO EFFUSION MILD PULMONARY HYPERTENSION RVSP IS 42 MM OF HG AND IS VERY HIGH
--- NOTE | 2024-07-15 19:13 | DVH ---
INDICATION: Transaminitis TECHNIQUE: Ultrasound abdomen limited. Multiple real-time sonographic images of the abdomen were ob tained. COMPARISON: None FINDINGS: Hepatic parenchyma suggests steatosis The liver measures 18.5 cm. No intrahepatic biliary ductal dilatation is noted. The gallbladder wall measures 0.24 cm and is unremarkable. No gallstones or sludge is seen. The co mmon duct measures 0.46 cm and is unremarkable. No pericholecystic fluid is noted. The right kidney measures 11.5 cm. No hydronephrosis. The pancreas is not well visualized due to obscuration from bowel gas. IMPRESSION: 1. Normal exam of the abdomen. HS:Y
[2024-07-15 22:32] LABS: Chloride 102 mmol/L (98-107); Potassium 3.8 mmol/L (3.5-5.1)
[2024-07-15 22:33] LABS: Anion Gap 8 (5-15); Carbon Dioxide 21 mmol/L (20-31)
[2024-07-15 22:34] LABS: Calcium 8.8 mg/dL (8.7-10.4)
[2024-07-15 22:38] LABS: Glucose 89 mg/dL (74-106)
[2024-07-15 22:39] LABS: BUN/Creatinine Ratio 12.9 (10.0-20.0)
[2024-07-15 22:42] LABS: Blood Urea Nitrogen 8 mg/dL (9-23); Sodium 131 mmol/L (136-145)
[2024-07-16] VITALS (7 sets, daily range): BP systolic 103–122; BP diastolic 50–71; PULSE 66–91; RESP 17–18; TEMP 98.1–99.3; O2SAT 95–99
[2024-07-16 05:18] LABS: Basophils # (auto) 0 10 ^3/uL (0-0.2); Basophils % (auto) 0.3 % (0.0-2.0); Eosinophils # (auto) 0 10 ^3/uL (0-0.8); Eosinophils % (auto) 0.4 % (0.0-7.0); Hematocrit 27.1 % (36.0-46.0); Hemoglobin 9.1 g/dL (12.2-16.2); Lymphocytes % (auto) 13.2 % (10.0-50.0); Mean Corpuscular Hemoglobin 27.4 pg (28.0-32.0); Mean Corpuscular Hgb Conc. 33.6 g/dL (32.0-36.0); Mean Corpuscular Volume 81.6 fL (80.0-100.0); Monocytes # (auto) 0.8 10 ^3/uL (0-1.3); Monocytes % (auto) 9.7 % (0.0-12.0); Neutrophils % (auto) 76.4 % (37.0-80.0); Nucleated Red Blood Cells % 0.1 %; Platelet Count (auto) 155 10^3/uL (140-450); Red Blood Cells 3.32 10^6/uL (4.0-5.20); Red Cell Distribution Width 15.7 % (11.8-14.3); White Blood Cell 7.8 10^3/uL (4.4-10.8)
[2024-07-16 05:34] LABS: Anion Gap 9 (5-15); BUN/Creatinine Ratio 14.6 (10.0-20.0); Calcium 8.8 mg/dL (8.7-10.4); Carbon Dioxide 20 mmol/L (20-31); Chloride 103 mmol/L (98-107); Glucose 86 mg/dL (74-106); Potassium 3.5 mmol/L (3.5-5.1)
[2024-07-16 05:39] LABS: Alanine Aminotransferase 110 U/L (7-40); Albumin 2.5 g/dL (3.2-4.8); Alkaline Phosphatase 166 U/L (46-116); Aspartate Aminotransferase 158 U/L (13-40); Bilirubin, Total 1.7 mg/dL (0.2-1.0); Blood Urea Nitrogen 7 mg/dL (9-23); Magnesium 1.5 mg/dL (1.6-2.6); Sodium 132 mmol/L (136-145); Total Protein 5.1 g/dL (5.7-8.2)
[2024-07-16 10:44] LABS: Chloride 103 mmol/L (98-107)
[2024-07-16 10:45] LABS: Anion Gap 8 (5-15); Carbon Dioxide 22 mmol/L (20-31)
[2024-07-16 10:46] LABS: Calcium 8.9 mg/dL (8.7-10.4)
[2024-07-16 10:47] LABS: Potassium 3.3 mmol/L (3.5-5.1); Sodium 133 mmol/L (136-145)
[2024-07-16 10:51] LABS: BUN/Creatinine Ratio 13.2 (10.0-20.0); Blood Urea Nitrogen 7 mg/dL (9-23); Glucose 100 mg/dL (74-106)
[2024-07-16] MEDS: MAGNESIUM SULFATE 1GM/100ML 100 ML IV SCH (11:15)
[2024-07-16] MEDS: POTASSIUM EFFERVESENT TAB 25 MEQ PO ONE (14:50)
--- NOTE | 2024-07-16 17:20 | DVHINCON2 ---
Date of service: Jul 16, [address] Bruce Reason for Consultation Recurrent falls History of Present Illness Ms. Stas Eastman is a 58 years old right-handed female with a history of seizure, dementia, schizophrenia, bipolar disorder, obesity, she came to the [facility] on 07/14/2024 with a chief company of general weakness/gait disturbance. At that time, she is awake, oriented to person and place only, she is not able to give a good history though with good social skills. The history is obtained from her daughter According to her daughter, the patient has had difficulty with standing, walking for two weeks, he needs assistance from the family to walk inside the house. She also reported dizziness/lightheadedness, and she did not know how to eat, how to move her arms and the legs (she asked her family member how to eat, how to use her extremities). She also had low appetite. He never had similar problems previously. She denies pain in the neck, low back, legs For 2-3 years, the patient has had progressive short-term memory difficulty, in that she does not remember what happened recently but long-term memory is fine, this is a family history of dementia/memory difficulty, she has not bring her memory from to her family doctor's attention. She has a history of bipolar disorder, schizophrenia, since early 2024, she sometimes hears and sees nonexisting persons She has a history of seizure disorder for more than 36 years. Her daughter remembers the patient has attacks of loss of consciousness, shaking all over body, biting to her tongue. Her daughter does not know when was the last seizure attack. Her daughter does not remember but according to our record, she is on Depakote 1000 mg daily, Dilantin 300 mg b.i.d. [phone], no answer, answer Her pharmacy, [facility] ( ) is closed BUN/CR, 07/14/2024: WBC: 1, urine leukocyte negative WBC/HB/PLT/MCV, 07/16/2024: 7.8/9.1/155/81.6 Na, 07/14/2024: 129, 130, 07/15/24: 131, 07/16/24:133 TBI/AST/ALT/AP, 07/14/2024: 2.6/254/164/146, 07/16/2024: 1.7/158/110/166 Have had panel, 07/2024: TSH, 07/15/2024: 1.79 Ultrasound, abdomen, 07/15/2024: Normal exam of the abdomen Chest x-ray, 07/14/2024: No acute intrathoracic abnormality. CT head, 07/14/2024: No acute intracranial process. (no hydrocephalus) Past Medical History Seizure, dementia, schizophrenia, bipolar disorder, obesity Past Surgical History Family History: Diabetes mellitus G8 FATHER FH: cancer G8 FATHER Family History Cancer, diabetes. No memory difficulty Social History She was tobacco smoke, but no history of drug or alcohol abuse (polysubstance abuse per Dr. Bruce's note dated 07/15/2024) Allergies: Coded Allergies: Belladonna (Verified Allergy, Unknown, 07/14/24) Home Meds Reported Medications Buspirone Hcl (Buspirone Hcl) 15 Mg Tab, 1 TAB PO HS 07/14/24 Hydroxyzine Pamoate (Hydroxyzine Pamoate) 50 Mg Cap, 1 CAP PO BID 07/14/24 Aripiprazole (Aripiprazole Odt) 10 Mg Tab, 1 TAB PO HS 07/14/24 Albuterol Sulfate (Albuterol Sulfate Hfa) 108 Mcg/Act Aer, 2 PUFF INH PRN for SHORTNESS OF BREATH EVERY 4-6 HRS NEEDED FOR SOB 07/14/24 Etodolac (Etodolac) 500 Mg Tab, 1 TAB PO BID PRN for PAIN 07/14/24 Spironolactone (Spironolactone) 25 Mg Tab, 1 TAB PO DAILY 07/14/24 Metformin Hydrochloride (Glumetza) 1,000 Mg Tab, 1 TAB PO BID 07/14/24 Fluticasone Furoate (Inhalatio (Arnuity Ellipta) 100 Mcg/Act Inh, 1 PUFF INH DAILY 07/14/24 Divalproex Sodium (Divalproex Sodium) 500 Mg Tab, 1000 MG PO DAILY, MG 07/14/24 Phenytoin Sodium (DILANTIN CAPSULE) 100 Mg Cp, 300 MG PO BID, CAP 07/14/24 Chlorthalidone (Chlorthalidone) 25 Mg Tab, 1 TAB PO DAILY 07/14/24 Pantoprazole Sodium Sesquihydr (Pantoprazole Sodium) 40 Mg Tab, 1 TAB PO DAILY 07/14/24 Atorvastatin Calcium (ATORVASTATIN CALCIUM) 20 Mg Tab, 1 TAB PO DAILY 07/14/24 Semaglutide (Rybelsus) 3 Mg Tab, 1 TAB PO DAILY 07/14/24 Current Medications Current Medications Medications (Trade) Dose Ordered Sig/Elizabet Route PRN Reason Start Time Stop Time Status Last Admin Magnesium Sulfate/ Dextrose 100 ml @ 100 mls/hr Q1HR IV 07/16/24 11:00 07/16/24 13:59 DC 07/16/24 13:48 Review of Systems As above, the other systems are negative Vital Signs Vital Signs Date Time Temp Pulse Resp B/P (MAP) Pulse Ox O2 Delivery O2 Flow Rate FiO2 07/16/24 13:30 98.5 66 17 120/71 (87) 99 98.5 07/16/24 08:00 Room Air* 0 21 Physical Exam GENERAL EXAM: General: the patient is well developed and nourished. No acute distress. HEENT: Normocephalic, neck is supple, no carotid bruits. No mass RESPIRATORY: Normal respiratory effort with symmetrical lung expansion. Lungs clear to auscultation. CARDIOVASCULAR: Regular rate and rhythm with no murmurs. S1, S2. ABDOMEN: Soft, nontender, normal bowel sound NEUROLOGICAL: MENTAL STATUS: Awake and alert. Oriented to person, place SPEECH, LANGUAGE, HIGHER CORTICAL FUNCTION: no aphasia or dysathria. CRANIAL NERVES: #2: Intact visual [place]wood to confrontation. The optic discs were sharp #3,4,6: Pupils are equal, round and reactive. EOMs full and conjugate. No nystagmus. #5: Facial sensation intact in all three divisions bilaterally. Mandibular strength intact. #7: Facial muscles symmetrical and strength intact. #8: Hearing grossly normal to voice. #9,10: Uvula and soft palate rise in the midline. Swallow and voice are normal. #11: Trapezius and sternomastoid strength intact bilaterally. #12: Tongue midline. No fasciculations or atrophy. SENSATION: Sensation to touch and pinprick is normal. MOTOR: Normal tone in the upper and lower extremity. Normal muscle bulk. No fasciculations. No abnormal movements or posturing. Muscle strength of the major groups in the upper extremities is 5/5. Muscle strength of the major groups in the lower extremities is 5/5. REFLEXES: Deep tendon reflexes are symmetrical. No pathological reflexes. CEREBELLAR/COORDINATION: Finger to nose is normal bilaterally. GAIT/STATION: deferred Labs/Diagnostic Data Labs Test 07/16/24 10:26 07/16/24 04:40 07/15/24 05:06 07/14/24 14:08 Range/Units Sodium Level 133 L 136-145 mmol/L Potassium Level 3.3 L 3.5-5.1 mmol/L Chloride Level 103 98-107 mmol/L Carbon Dioxide Level 22 20-31 mmol/L Anion Gap 8 5-15 Blood Urea Nitrogen 7 L 9-23 mg/dL Creatinine 0.53 L 0.550-1.02 mg/dL Glomerular Filtration Rate Calc 108 >90 mL/min BUN/Creatinine Ratio 13.2 10.0-20.0 Serum Glucose 100 74-106 mg/dL Calcium Level 8.9 8.7-10.4 mg/dL White Blood Count 7.8 4.4-10.8 10^3/uL Red Blood Count 3.32 L 4.0-5.20 10^6/uL Hemoglobin 9.1 L 12.2-16.2 g/dL Hematocrit 27.1 L 36.0-46.0 % Mean Corpuscular Volume 81.6 80.0-100.0 fL Mean Corpuscular Hemoglobin 27.4 L 28.0-32.0 pg Mean Corpuscular Hemoglobin Concent 33.6 32.0-36.0 g/dL Red Cell Distribution Width 15.7 H 11.8-14.3 % Platelet Count 155 140-450 10^3/uL Mean Platelet Volume 10.2 6.9-10.8 fL Neutrophils (%) (Auto) 76.4 37.0-80.0 % Lymphocytes (%) (Auto) 13.2 10.0-50.0 % Monocytes (%) (Auto) 9.7 0.0-12.0 % Eosinophils (%) (Auto) 0.4 0.0-7.0 % Basophils (%) (Auto) 0.3 0.0-2.0 % Neutrophils # (Auto) 6.0 1.6-8.6 10 ^3/uL Lymphocytes # (Auto) 1.0 0.4-5.4 10 ^3/uL Monocytes # (Auto) 0.8 0-1.3 10 ^3/uL Eosinophils # (Auto) 0 0-0.8 10 ^3/uL Basophils # (Auto) 0 0-0.2 10 ^3/uL Nucleated Red Blood Cells 0.1 % Magnesium Level 1.5 L 1.6-2.6 mg/dL Total Bilirubin 1.7 H 0.2-1.0 mg/dL Aspartate Amino Transferase (AST) 158 H 13-40 U/L Alanine Aminotransferase (ALT) 110 H 7-40 U/L Alkaline Phosphatase 166 H 46-116 U/L Total Protein 5.1 L 5.7-8.2 g/dL Albumin 2.5 L 3.2-4.8 g/dL Thyroid Stimulating Hormone (TSH) 1.79 0.55-4.78 uIU/mL Urine Color Dark-yellow Yellow Urine Clarity Clear Clear Urine pH 6.5 5.0-9.0 Urine Specific [place] 1.020 1.001-1.035 Urine Protein 1+ H Negative Urine Ketones Negative Negative Urine Blood Trace H Negative /uL Urine Nitrite Negative Negative Urine Bilirubin 2+ H Negative Urine Urobilinogen 6 Negative mg/dL Urine Leukocyte Esterase Negative Negative /uL Urine RBC 5 0 - 4 /hpf Urine Microscopic WBC 1 0-5 /HPF Urine Squamous Epithelial Cells Few <5 /hpf Urine Bacteria Few H None Seen /hpf Urine Glucose Normal Normal mg/dL Test 07/14/24 09:40 07/14/24 08:53 Range/Units Lactic Acid Level 0.7 0.4-2.0 mmol/L Troponin I High Sensitivity 4 </=34 ng/L Microbiology Date/Time Source Procedure Growth Status 07/14/24 09:40 Blood Blood Culture - Preliminary NO GROWTH AFTER 48 HOURS OF INCUBATION. Resulted Assessment Gait disturbance, general weakness, multifactorial Metabolic encephalopathy Cognitive dysfunction Rule out acute LACER AND TIER pathology Cognitive dysfunction ? Alzheimer's disease ? Secondary to chronic psychiatric disorder Seizure disorder/grand mal seizure Plan/Recommendation Monitoring Supportive treatment UDS Depakote level now Dilantin level now TSH RPR vitamin B12 and folic acid EEG MRI head Depakote 500 mg b.i.d. Dilantin 300 mg HS for now DVT prophylaxis/Lovenox GI prophylax Up to chair Physical therapy We will talked to the family/pharmacy to confirm her seizure medication dosage More recommendation per clinical course Prognosis: Poor This medical document was created using an electronic medical record system with xiao qu wu you computerized dictation system. Although this document has been carefully reviewed, there may still be some phonetic and typographical errors. These areas are purely typographical due to imperfections of the software programs, and do not reflect any compromise in the patient's medical care. Plan discussed with: Daughter, Other THANH MERCHANT MD Jul 16, 2024 17:20
--- NOTE | 2024-07-16 18:17 | DVHPN2 ---
Subjective CT head is negative. Patient is here for multiple falls as well as disorientation. Patient does have underlying Alzheimer dementia. Daughter at bedside was updated regarding current plan of care. 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 minimally following commands Medications Current Medications Medications Dose Ordered Sig/Elizabet Route Start Time Stop Time Status Last Admin Dose Admin Ondansetron HCl 4 mg Q4HP PRN IV 07/14/24 09:00 Acetaminophen 650 mg Q6HP PRN PO 07/14/24 09:00 07/15/24 20:06 650 MG Nitroglycerin 0.4 mg Q5MINP PRN SL 07/14/24 09:00 Morphine Sulfate 2 mg Q30M PRN IV 07/14/24 10:00 Chlorthalidone 25 mg DAILY PO 07/14/24 10:00 07/16/24 09:24 25 MG Pantoprazole Sodium 40 mg DAILY PO 07/14/24 10:00 07/16/24 09:24 40 MG Patient Own Medication 1 tab DAILY PO 07/14/24 10:00 07/14/24 10:13 1 TAB Enoxaparin Sodium 40 mg DAILY SC 07/14/24 10:00 07/16/24 09:25 40 MG Famotidine 20 mg DAILY IV 07/14/24 10:00 07/16/24 10:25 20 MG Ibuprofen 400 mg Q6HP PRN PO 07/14/24 18:45 07/14/24 20:15 400 MG Ceftriaxone Sodium 50 ml @ 100 mls/hr DAILY@09 IV 07/14/24 20:30 07/16/24 09:25 100 MLS/HR Laboratory Results Laboratory Tests 07/16/24 04:40 07/16/24 10:26 Chemistry Test 07/15/24 21:52 07/16/24 04:40 07/16/24 10:26 Calcium Level 8.8 mg/dL (8.7-10.4) 8.8 mg/dL (8.7-10.4) 8.9 mg/dL (8.7-10.4) Albumin 2.5 g/dL (3.2-4.8) L Magnesium Level 1.5 mg/dL (1.6-2.6) L Total Protein 5.1 g/dL (5.7-8.2) L LFT Test 07/16/24 04:40 Alanine Aminotransferase (ALT) 110 U/L (7-40) H Alkaline Phosphatase 166 U/L (46-116) H Aspartate Amino Transferase (AST) 158 U/L (13-40) H Total Bilirubin 1.7 mg/dL (0.2-1.0) H Urinalysis Test 07/14/24 14:08 Urine Color Dark-yellow (Yellow) Urine Clarity Clear (Clear) Urine pH 6.5 (5.0-9.0) Urine Specific [place] 1.020 (1.001-1.035) Urine Protein 1+ (Negative) H Urine Ketones Negative (Negative) Urine Blood Trace /uL (Negative) H Urine Nitrite Negative (Negative) Urine Bilirubin 2+ (Negative) H Urine Urobilinogen 6 mg/dL (Negative) Urine Leukocyte Esterase Negative /uL (Negative) Urine RBC 5 /hpf (0 - 4) Urine Microscopic WBC 1 /HPF (0-5) Urine Squamous Epithelial Cells Few /hpf (<5) Urine Bacteria Few /hpf (None Seen) H Urine Glucose Normal mg/dL (Normal) Microbiology Microbiology Date/Time Source Procedure Growth Status 07/14/24 09:40 Blood Blood Culture - Preliminary NO GROWTH AFTER 48 HOURS OF INCUBATION. Resulted Assessment/Plan Assessment/Plan 58-year-old female with a known history of epilepsy, Alzheimer dementia, with a previous history of polysubstance abuse presented to the hospital with a generalized weakness and multiple falls found to have 1. Generalized weakness 2. Recurrent falls, check TSH RPR vitamin B12 and folic acid 3. Transaminitis, hold atorvastatin, right upper quadrant abdominal ultrasound and check acute hepatitis panel. 4. Epilepsy 5. Alzheimer dementia 6. Previous history of polysubstance abuse -check orthostatic vitals, check TSH, RPR, vitamin B12-, folic acid, neurology consultation Physical therapy evaluation and treatment. Plan discussed with: Patient, Daughter My Orders Orders - RAMESH JEFFERY MD Procedure Category Date Status Time Communication Order ORDERS 07/15/24 Transmitted 18:56 Discontinue Kumar TIFFANIE 07/16/24 In Process Catheter 14:34 Date of Service: Jul 16, 2024 Billing Provider: RAMESH JEFFERY MD Common Visit Codes: [id number] INP/OBS CARE(MOD) RAMESH JEFFERY MD Jul 16, 2024 18:17
[2024-07-16] MEDS ORDERED: LORazepam 2MG/ML-1ML VIAL IV PRN (19:00)
[2024-07-16 19:58] LABS: Phenytoin (Dilantin) < 2.0 ug/mL (10-20); Valproic Acid (Depakene) 6.2 ug/mL (50-100)
[2024-07-16 22:09] LABS: Chloride 102 mmol/L (98-107)
[2024-07-16 22:10] LABS: Anion Gap 6 (5-15); Calcium 9.2 mg/dL (8.7-10.4); Carbon Dioxide 25 mmol/L (20-31)
[2024-07-16 22:15] LABS: BUN/Creatinine Ratio 13.6 (10.0-20.0); Glucose 102 mg/dL (74-106)
[2024-07-16 22:17] LABS: Blood Urea Nitrogen 8 mg/dL (9-23); Sodium 133 mmol/L (136-145)
[2024-07-17] VITALS (7 sets, daily range): BP systolic 84–128; BP diastolic 53–76; PULSE 65–86; RESP 16–18; TEMP 98.1–98.9; O2SAT 95–98
--- NOTE | 2024-07-17 09:08 | DVH ---
EXAMINATION: MRI BRAIN HEAD WO CONTRAST INDICATION: Sz, ALOC COMPARISON: None TECHNIQUE: Multiplanar, multisequence magnetic resonance imaging of the brain was performed without the use of i ntravenous contrast. FINDINGS: No evidence of acute or remote infarct. No intracranial hemorrhage. No mass effect. There is periventricular/deep white matter T2/FLAIR hyperintensity is nonspecific, but most commonly associated with chronic microvascular disease. The ventricles and sulci are normal in size for age. Clear basal cisterns. Flow voids in the major intracranial vessels are maintained. No abnormality of the orbits. Paranasal sinuses and mastoid air cells are clear. No abnormality of the visualized osseous structures and extracranial soft tissues. IMPRESSION: No acute infarct, intracranial hemorrhage, mass effect, or hydrocephalus.
[2024-07-17 10:34] LABS: Hepatitis A Ab IgM Negative; Hepatitis B Core IgM Negative (Negative); Hepatitis B Surface Antigen Negative (Negative); Hepatitis C Antibody Negative (Negative)
[2024-07-17 10:50] LABS: Phenytoin (Dilantin) < 2.0 ug/mL (10-20); Valproic Acid (Depakene) 3.8 ug/mL (50-100)
--- NOTE | 2024-07-17 12:12 | ECG ---
[facility] Test Date: 2024-07-14 Test Time: 07:53:18 Pat Name: ANNIA MOORE Department: ER Room: [facility] A Gender: F Glove Cuffer: HERIBERTO : 1965 Requested By: TATI DRISCOLL Order Number: [id number] Reading MD: Michael Escalante Measurements Intervals [place] Rate: 102 P: 75 WA: 143 QRS: 65 QRSD: 83 T: 22 QT: 331 QTc: 432 Interpretive Statements Sinus tachycardia Consider right atrial enlargement Electronically Signed On 07-19-2024 20:26:54 PDT by Michael Escalante Please click the below link to view image of tracing.
[2024-07-17 12:25] LABS: Folate (Folic Acid) 11.05 ng/mL (>5.38)
--- NOTE | 2024-07-17 16:56 | DVHDS2 ---
Discharge Summary Date of Admission Jul 14, 2024 at 08:58 Date of Discharge: Jul 17, 2024 Labs/Diagnostic Data: Laboratory Results Test 07/17/24 07:01 07/16/24 21:50 07/16/24 04:40 07/15/24 05:06 Vitamin B12 Level > 4000 pg/mL (211-911) Folic Acid 11.05 ng/mL (>5.38) Phenytoin (Dilantin) Level < 2.0 ug/mL (10-20) Valproic Acid Level 3.8 ug/mL (50-100) Sodium Level 133 mmol/L (136-145) Potassium Level 4.0 mmol/L (3.5-5.1) Chloride Level 102 mmol/L (98-107) Carbon Dioxide Level 25 mmol/L (20-31) Anion Gap 6 (5-15) Blood Urea Nitrogen 8 mg/dL (9-23) Creatinine 0.59 mg/dL (0.550-1.02) Glomerular Filtration Rate Calc 105 mL/min (>90) BUN/Creatinine Ratio 13.6 (10.0-20.0) Serum Glucose 102 mg/dL (74-106) Calcium Level 9.2 mg/dL (8.7-10.4) White Blood Count 7.8 10^3/uL (4.4-10.8) Red Blood Count 3.32 10^6/uL (4.0-5.20) Hemoglobin 9.1 g/dL (12.2-16.2) Hematocrit 27.1 % (36.0-46.0) Mean Corpuscular Volume 81.6 fL (80.0-100.0) Mean Corpuscular Hemoglobin 27.4 pg (28.0-32.0) Mean Corpuscular Hemoglobin Concent 33.6 g/dL (32.0-36.0) Red Cell Distribution Width 15.7 % (11.8-14.3) Platelet Count 155 10^3/uL (140-450) Mean Platelet Volume 10.2 fL (6.9-10.8) Neutrophils (%) (Auto) 76.4 % (37.0-80.0) Lymphocytes (%) (Auto) 13.2 % (10.0-50.0) Monocytes (%) (Auto) 9.7 % (0.0-12.0) Eosinophils (%) (Auto) 0.4 % (0.0-7.0) Basophils (%) (Auto) 0.3 % (0.0-2.0) Neutrophils # (Auto) 6.0 10 ^3/uL (1.6-8.6) Lymphocytes # (Auto) 1.0 10 ^3/uL (0.4-5.4) Monocytes # (Auto) 0.8 10 ^3/uL (0-1.3) Eosinophils # (Auto) 0 10 ^3/uL (0-0.8) Basophils # (Auto) 0 10 ^3/uL (0-0.2) Nucleated Red Blood Cells 0.1 % Magnesium Level 1.5 mg/dL (1.6-2.6) Total Bilirubin 1.7 mg/dL (0.2-1.0) Aspartate Amino Transferase (AST) 158 U/L (13-40) Alanine Aminotransferase (ALT) 110 U/L (7-40) Alkaline Phosphatase 166 U/L (46-116) Total Protein 5.1 g/dL (5.7-8.2) Albumin 2.5 g/dL (3.2-4.8) Thyroid Stimulating Hormone (TSH) 1.79 uIU/mL (0.55-4.78) Hepatitis A IgM Antibody Negative Hepatitis B Surface Antigen Negative (Negative) Hepatitis B Core IgM Antibody Negative (Negative) Hepatitis C Antibody Negative (Negative) Test 07/14/24 14:08 07/14/24 09:40 07/14/24 08:53 Urine Color Dark-yellow (Yellow) Urine Clarity Clear (Clear) Urine pH 6.5 (5.0-9.0) Urine Specific [place] 1.020 (1.001-1.035) Urine Protein 1+ (Negative) Urine Ketones Negative (Negative) Urine Blood Trace /uL (Negative) Urine Nitrite Negative (Negative) Urine Bilirubin 2+ (Negative) Urine Urobilinogen 6 mg/dL (Negative) Urine Leukocyte Esterase Negative /uL (Negative) Urine RBC 5 /hpf (0 - 4) Urine Microscopic WBC 1 /HPF (0-5) Urine Squamous Epithelial Cells Few /hpf (<5) Urine Bacteria Few /hpf (None Seen) Urine Glucose Normal mg/dL (Normal) Lactic Acid Level 0.7 mmol/L (0.4-2.0) Troponin I High Sensitivity 4 ng/L (</=34) Other Laboratory Tests 07/16/24 21:50 07/16/24 04:40 Brief Hx & Hospital Course: 58-year-old female with a known history of epilepsy, Alzheimer dementia, with a previous history of polysubstance abuse presented to the hospital with a generalized weakness and multiple falls found to have 1. Generalized weakness 2. Recurrent falls, check TSH RPR vitamin B12 and folic acid 3. Transaminitis, hold atorvastatin, right upper quadrant abdominal ultrasound and check acute hepatitis panel. 4. Epilepsy 5. Alzheimer dementia 6. Previous history of polysubstance abuse Final Diagnosis/Problems List 58-year-old female with a known history of epilepsy, Alzheimer dementia, with a previous history of polysubstance abuse presented to the hospital with a generalized weakness and multiple falls found to have 1. Generalized weakness 2. Recurrent falls, check TSH RPR vitamin B12 and folic acid 3. Transaminitis, hold atorvastatin, right upper quadrant abdominal ultrasound and check acute hepatitis panel. 4. Epilepsy 5. Alzheimer dementia 6. Previous history of polysubstance abuse Discharge Disposition: Home Discharge Instruct/Medications Diet: Cardiac 2g Na,low cholest Activity: No Restrictions, As Tolerated Follow Up/Referral: Follow up with the PCP in one week Follow up with the Neurology Dr. Lennon in 1-2 weeks Medications: Resume home medications Discharge Statement: "Patient was advised to return to the ER or call 911 if any headaches, dizziness, shortness of breath, chest pain, abdominal pain, bleeding, fevers, or worsening of medical condition. Patient was counseled about treatment plan, medications, possible side effects, patientverbalized understanding. All questions were answered to the best of my ability. This discharge took greater then 30 minutes in planning, reviewing documentation, counseling the patient, and discussing with other team members." ASSESSMENT ASSESSMENT Assessment 58-year-old female with a known history of epilepsy, Alzheimer dementia, with a previous history of polysubstance abuse presented to the hospital with a generalized weakness and multiple falls found to have 1. Generalized weakness 2. Recurrent falls, check TSH RPR vitamin B12 and folic acid 3. Transaminitis, hold atorvastatin, right upper quadrant abdominal ultrasound and check acute hepatitis panel. 4. Epilepsy 5. Alzheimer dementia 6. Previous history of polysubstance abuse RAMESH JEFFERY MD Jul 17, 2024 16:56
--- NOTE | 2024-07-17 22:39 | DVHPN2 ---
Progress Note - Dictate Date Seen: Jul 17, 2024 Medical Necessity Reason Pt with a Central, PICC or Fol: No Subjective Ms. Stas Eastman is a 58 years old right-handed female with a history of seizure, dementia, schizophrenia, bipolar disorder, obesity, she came to the [facility] on 07/14/2024 with a chief company of general weakness/gait disturbance. I have seen and examined the patient, I have talked to her nurse, she is doing fine, no seizure activity, oriented to person and place only, good social skills. She claims she remember some of her seizures in that she was "scratching" I have talked to her daughter, her seizure medication: Depakote 500 mg two tablets q.d., Dilantin 100 mg three capsules b.i.d., she was also on Lipitor 20 mg daily Her daughter does not know much about her seizure, he related last time she had seizure was about one week ago, which was a mild one in that the patient has had stiffness in whole-body for less 1 minute, and the patient was mentally fine right after the seizure was over Dilantin, 07/16/2024: <2, 07/17/2024: <2 Depakote, 07/16/2024: 6.2, 07/17/2024: 3.8 Hepatitis , 07/15/2024: Negative BUN/CR, 07/14/2024: WBC: 1, urine leukocyte negative WBC/HB/PLT/MCV, 07/16/2024: 7.8/9.1/155/81.6 Na, 07/14/2024: 129, 130, 07/15/24: 131, 07/16/24:133 TBI/AST/ALT/AP, 07/14/2024: 2.6/254/164/146, 07/16/2024: 1.7/158/110/166 Vitamin B12, 07/17/24: 4000 Folic acid, 07/17/2024: 11.05 TSH, 07/15/2024: 1.79 Ultrasound, abdomen, 07/15/2024: Normal exam of the abdomen Chest x-ray, 07/14/2024: No acute intrathoracic abnormality. CT head, 07/14/2024: No acute intracranial process. (no hydrocephalus) MRI head 07/17/2024: vital signs Vital Sign Date Time Temp Pulse Resp B/P (MAP) Pulse Ox O2 Delivery O2 Flow Rate FiO2 07/17/24 20:00 Room Air* 0 21 07/17/24 18:19 98.5 86 16 96 07/17/24 17:20 117/67 (84) Total Intake and Output 07/16/24 07/16/24 07/17/24 15:00 23:00 07:00 Intake Total 1800 ml 900 ml 800 ml Output Total 2100 ml Balance 1800 ml -1200 ml 800 ml medications Current Medications Medications Dose Ordered Sig/Elizabet Route Start Time Stop Time Status Last Admin Dose Admin Ondansetron HCl 4 mg Q4HP PRN IV 07/14/24 09:00 Acetaminophen 650 mg Q6HP PRN PO 07/14/24 09:00 07/15/24 20:06 650 MG Nitroglycerin 0.4 mg Q5MINP PRN SL 07/14/24 09:00 Morphine Sulfate 2 mg Q30M PRN IV 07/14/24 10:00 Chlorthalidone 25 mg DAILY PO 07/14/24 10:00 07/17/24 09:08 25 MG Pantoprazole Sodium 40 mg DAILY PO 07/14/24 10:00 07/17/24 09:08 40 MG Patient Own Medication 1 tab DAILY PO 07/14/24 10:00 07/14/24 10:13 1 TAB Enoxaparin Sodium 40 mg DAILY SC 07/14/24 10:00 07/17/24 09:09 40 MG Famotidine 20 mg DAILY IV 07/14/24 10:00 07/17/24 09:08 20 MG Ibuprofen 400 mg Q6HP PRN PO 07/14/24 18:45 07/14/24 20:15 400 MG Ceftriaxone Sodium 50 ml @ 100 mls/hr DAILY@09 IV 07/14/24 20:30 07/17/24 09:08 100 MLS/HR Lorazepam 1 mg ONCE PRN IV 07/16/24 19:00 objective General: the patient is well developed and nourished. No acute distress. MENTAL STATUS: Awake and alert. Oriented to person, place SPEECH, LANGUAGE, HIGHER CORTICAL FUNCTION: no aphasia or dysathria. CRANIAL NERVES: Pupils are equal, round and reactive. EOMs full and conjugate. No nystagmus. Facial sensation intact in all three divisions bilaterally. Mandibular strength intact. Facial muscles symmetrical and strength intact. SENSATION: Sensation to touch and pinprick is normal. MOTOR: Normal tone in the upper and lower extremity. Normal muscle bulk. No fasciculations. No abnormal movements or posturing. Muscle strength of the major groups in the extremities is 5/5. REFLEXES: Deep tendon reflexes are symmetrical. No pathological reflexes. CEREBELLAR/COORDINATION: Finger to nose is normal bilaterally. 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 Alzheimer's disease ? Secondary to chronic psychiatric disorder Seizure disorder/grand mal seizure, ? Atypical features Assessment/Plan Monitoring Supportive treatment UDS Follow-up Depakote level now Follow-up Dilantin level now EEG Dilantin 1000 mg IV x1 Depakote 1500 mg IV x1 Depakote 500 mg b.i.d. Dilantin 300 mg HS for now DVT prophylaxis/Lovenox GI prophylax Up to chair Physical therapy We will talked to the family/pharmacy to confirm her seizure medication dosage More recommendation per clinical course This medical document was created using an electronic medical record system with [employer] dictation system. Although this document has been carefully reviewed, there may still be some phonetic and typographical errors. These areas are purely typographical due to imperfections of the software programs, and do not reflect any compromise in the patient's medical care. Prognosis poor Dietary Evaluation Review Recommendations by RD: Dietary education by RD Comments: 1) Initiate MVI @ 1 tb qd 2) Encourage optimal PO intake. If < 50%, initiate Ensure Enlive qd 3) Refer to outpatient RD for weight management 4) Follow-up with cardiology, neurology, and psychology 5) Continue to monitor I&O, labs, and skin integrity Expected Outcomes/Goals: 1) appetite and labs to improve 2) GI symptoms to improve 3) f/u in 3-5 days Plan discussed with: Daughter, Other Critical Care Time(min): 40 THANH MERCHANT MD Jul 17, 2024 22:39
[2024-07-17] MEDS: PHENYTOIN SODIUM 50 MG/ML 2ML VIAL IV ONE (23:15)
--- NOTE | 2024-07-17 23:15 | DVHEEG2 ---
Neurology EEG Procedural Note Procedural Note EXAM DATE: 07/17/2024 REFERRING DOCTOR: Dr. Merchant TECHNIQUE: Eighteen channels of EEG, 2 channels of EOG, and 1 channel of EKG were recorded using the International 10/20 system. CLINICAL DATA: The patient was referred for an EEG evaluation for the evidence of seizure disorder. MEDICATIONS: See chart BACKGROUND ACTIVITY: While the patient was awake, the background activity consisted of well regulated 8-9 Hz rhythmic waveforms, symmetrically distributed over both posterior quadrants and was reactive to eye opening. ACTIVATION: Hyperventilation: Not done Photic Stimulation: Not done Sleep: Not seen IMPRESSION: This is a normal EEG. No focal, lateralized, or epileptiform features are noted. If clinically indicated to rule out a seizure disorder, recommend repeat EEG with sleep deprivation. The EKG channel showed a regular heart rate of 66 per [place] [address] THANH MERCHANT MD Jul 17, 2024 23:15
[2024-07-17] MEDS: PHENYTOIN IV DILANTIN 1,000 MG in SODIUM CHL 0.9% 250 ML IV ONE (23:48)
[2024-07-17] MEDS: PHENYTOIN SODIUM 50 MG/ML 5ML INJ VIAL IV ONE (23:49)
[2024-07-18] MEDS: VALPROATE SODIUM 100 MG/ML 5ML VIAL IV ONE (00:16)
[2024-07-18] MEDS: VALPROATE INJ 500 MG in SODIUM CHL 0.9% 100 ML IV ONE (00:28)
[2024-07-18 05:00] VITALS: BP 99/58; PULSE 66; RESP 18; TEMP 98.4; O2SAT 94
[2024-07-18 07:34] LABS: Phenytoin (Dilantin) 7.4 ug/mL (10-20); Valproic Acid (Depakene) 22.4 ug/mL (50-100)
[2024-07-18 08:00] VITALS: PULSE 76; RESP 18; O2SAT 94
[2024-07-18 09:00] VITALS: BP 99/61; PULSE 61; RESP 17; TEMP 98.2; O2SAT 97
[2024-07-18] MEDS: PHENYTOIN SODIUM 100 MG CAP PO SCH (09:30)
[2024-07-18 13:00] VITALS: BP 92/48; PULSE 63; RESP 17; TEMP 99.1; O2SAT 98
--- NOTE | 2024-07-18 16:40 | DVHPN2 ---
Subjective CT head is negative. Patient is here for multiple falls as well as disorientation. Patient does have underlying Alzheimer dementia. Daughter at bedside was updated regarding current plan of care. Reviewed: Care Plan Changes from previous H/P or p: No Changes Objective Vitals Vital Signs Date Time Temp Pulse Resp B/P (MAP) Pulse Ox O2 Delivery O2 Flow Rate FiO2 07/18/24 13:00 99.1 63 17 92/48 (63) 98 99.1 07/18/24 08:00 Room Air* 0 21 Intake/Output Intake and Output 07/18/24 07:00 Intake Total 1550 ml Balance 1550 ml Intake Oral 1500 ml IV Total 50 ml # Voids 20 Exam HEENT pupils are reactive Neck is supple CV is S1-S2 regular rate and rhythm Respiratory diminished breath sounds bases GI positive bowel sound Extremity no edema CLAIM EXAMINER minimally following commands Medications Current Medications Medications Dose Ordered Sig/Elizabet Route Start Time Stop Time Status Last Admin Dose Admin Ondansetron HCl 4 mg Q4HP PRN IV 07/14/24 09:00 Acetaminophen 650 mg Q6HP PRN PO 07/14/24 09:00 07/15/24 20:06 650 MG Nitroglycerin 0.4 mg Q5MINP PRN SL 07/14/24 09:00 Morphine Sulfate 2 mg Q30M PRN IV 07/14/24 10:00 Chlorthalidone 25 mg DAILY PO 07/14/24 10:00 07/18/24 09:29 25 MG Pantoprazole Sodium 40 mg DAILY PO 07/14/24 10:00 07/18/24 09:29 40 MG Patient Own Medication 1 tab DAILY PO 07/14/24 10:00 07/14/24 10:13 1 TAB Enoxaparin Sodium 40 mg DAILY SC 07/14/24 10:00 07/18/24 09:29 40 MG Famotidine 20 mg DAILY IV 07/14/24 10:00 07/18/24 09:28 20 MG Ibuprofen 400 mg Q6HP PRN PO 07/14/24 18:45 07/14/24 20:15 400 MG Ceftriaxone Sodium 50 ml @ 100 mls/hr DAILY@09 IV 07/14/24 20:30 07/18/24 09:28 100 MLS/HR Lorazepam 1 mg ONCE PRN IV 07/16/24 19:00 Phenytoin Sodium 300 mg Q12HR PO 07/18/24 10:00 07/18/24 09:30 300 MG Divalproex Sodium 500 mg BID PO 07/18/24 10:00 07/18/24 09:29 500 MG Laboratory Results Laboratory Tests 07/16/24 04:40 07/16/24 21:50 Urinalysis Test 07/14/24 14:08 Urine Color Dark-yellow (Yellow) Urine Clarity Clear (Clear) Urine pH 6.5 (5.0-9.0) Urine Specific [place] 1.020 (1.001-1.035) Urine Protein 1+ (Negative) H Urine Ketones Negative (Negative) Urine Blood Trace /uL (Negative) H Urine Nitrite Negative (Negative) Urine Bilirubin 2+ (Negative) H Urine Urobilinogen 6 mg/dL (Negative) Urine Leukocyte Esterase Negative /uL (Negative) Urine RBC 5 /hpf (0 - 4) Urine Microscopic WBC 1 /HPF (0-5) Urine Squamous Epithelial Cells Few /hpf (<5) Urine Bacteria Few /hpf (None Seen) H Urine Glucose Normal mg/dL (Normal) Microbiology Microbiology Date/Time Source Procedure Growth Status 07/14/24 09:40 Blood Blood Culture - Preliminary NO GROWTH AFTER 72 HOURS OF INCUBATION. Resulted Assessment/Plan Assessment/Plan 58-year-old female with a known history of epilepsy, Alzheimer dementia, with a previous history of polysubstance abuse presented to the hospital with a generalized weakness and multiple falls found to have 1. Seizure disorder 2. Recurrent falls, check TSH RPR vitamin B12 and folic acid 3. Transaminitis, hold atorvastatin, right upper quadrant abdominal ultrasound and check acute hepatitis panel. 4. Epilepsy 5. Alzheimer dementia 6. Previous history of polysubstance abuse -continue Dilantin and Depakote as prescribed, check Dilantin level. Plan discussed with: Patient My Orders Orders - RAMESH JEFFERY MD Procedure Category Date Status Time Discharge DISCHARGE 07/17/24 Transmitted 16:54 Date of Service: Jul 17, 2024 Billing Provider: RAMESH JEFFERY MD Common Visit Codes: [id number] INP/OBS CARE(MOD) RAMESH JEFFERY MD Jul 18, 2024 16:39
--- NOTE | 2024-07-18 16:41 | DVHPN2 ---
Subjective CT head is negative. Patient is here for multiple falls as well as disorientation. Patient does have underlying Alzheimer dementia. Daughter at bedside was updated regarding current plan of care. Reviewed: Care Plan Changes from previous H/P or p: No Changes Objective Vitals Vital Signs Date Time Temp Pulse Resp B/P (MAP) Pulse Ox O2 Delivery O2 Flow Rate FiO2 07/18/24 13:00 99.1 63 17 92/48 (63) 98 99.1 07/18/24 08:00 Room Air* 0 21 Intake/Output Intake and Output 07/18/24 07:00 Intake Total 1550 ml Balance 1550 ml Intake Oral 1500 ml IV Total 50 ml # Voids 20 Exam HEENT pupils are reactive Neck is supple CV is S1-S2 regular rate and rhythm Respiratory diminished breath sounds bases GI positive bowel sound Extremity no edema PT SITTER minimally following commands Medications Current Medications Medications Dose Ordered Sig/Elizabet Route Start Time Stop Time Status Last Admin Dose Admin Ondansetron HCl 4 mg Q4HP PRN IV 07/14/24 09:00 Acetaminophen 650 mg Q6HP PRN PO 07/14/24 09:00 07/15/24 20:06 650 MG Nitroglycerin 0.4 mg Q5MINP PRN SL 07/14/24 09:00 Morphine Sulfate 2 mg Q30M PRN IV 07/14/24 10:00 Chlorthalidone 25 mg DAILY PO 07/14/24 10:00 07/18/24 09:29 25 MG Pantoprazole Sodium 40 mg DAILY PO 07/14/24 10:00 07/18/24 09:29 40 MG Patient Own Medication 1 tab DAILY PO 07/14/24 10:00 07/14/24 10:13 1 TAB Enoxaparin Sodium 40 mg DAILY SC 07/14/24 10:00 07/18/24 09:29 40 MG Famotidine 20 mg DAILY IV 07/14/24 10:00 07/18/24 09:28 20 MG Ibuprofen 400 mg Q6HP PRN PO 07/14/24 18:45 07/14/24 20:15 400 MG Ceftriaxone Sodium 50 ml @ 100 mls/hr DAILY@09 IV 07/14/24 20:30 07/18/24 09:28 100 MLS/HR Lorazepam 1 mg ONCE PRN IV 07/16/24 19:00 Phenytoin Sodium 300 mg Q12HR PO 07/18/24 10:00 07/18/24 09:30 300 MG Divalproex Sodium 500 mg BID PO 07/18/24 10:00 07/18/24 09:29 500 MG Laboratory Results Laboratory Tests 07/16/24 04:40 07/16/24 21:50 Urinalysis Test 07/14/24 14:08 Urine Color Dark-yellow (Yellow) Urine Clarity Clear (Clear) Urine pH 6.5 (5.0-9.0) Urine Specific [place] 1.020 (1.001-1.035) Urine Protein 1+ (Negative) H Urine Ketones Negative (Negative) Urine Blood Trace /uL (Negative) H Urine Nitrite Negative (Negative) Urine Bilirubin 2+ (Negative) H Urine Urobilinogen 6 mg/dL (Negative) Urine Leukocyte Esterase Negative /uL (Negative) Urine RBC 5 /hpf (0 - 4) Urine Microscopic WBC 1 /HPF (0-5) Urine Squamous Epithelial Cells Few /hpf (<5) Urine Bacteria Few /hpf (None Seen) H Urine Glucose Normal mg/dL (Normal) Microbiology Microbiology Date/Time Source Procedure Growth Status 07/14/24 09:40 Blood Blood Culture - Preliminary NO GROWTH AFTER 72 HOURS OF INCUBATION. Resulted Assessment/Plan Assessment/Plan 58-year-old female with a known history of epilepsy, Alzheimer dementia, with a previous history of polysubstance abuse presented to the hospital with a generalized weakness and multiple falls found to have 1. Generalized weakness resolved are within normal limits 2. Recurrent falls, check TSH RPR vitamin B12 and folic acid 3. Transaminitis, hold atorvastatin, right upper quadrant abdominal ultrasound and check acute hepatitis panel. 4. Epilepsy 5. Alzheimer dementia 6. Previous history of polysubstance abuse -continue Dilantin and Depakote as prescribed, check Dilantin level. -discharge plan once Dilantin level is therapeutic. Plan discussed with: Patient My Orders Orders - RAMESH JEFFERY MD Procedure Category Date Status Time Discharge DISCHARGE 07/17/24 Transmitted 16:54 Date of Service: Jul 18, 2024 Billing Provider: TIGRE JEFFERY CDS Common Visit Codes: [id number] INP/OBS CARE(MOD) RAMESH JEFFERY MD Jul 18, 2024 16:41
[2024-07-18 17:00] VITALS: BP 99/57; PULSE 71; RESP 17; TEMP 99.2; O2SAT 98
[2024-07-18 21:00] VITALS: BP 106/56; PULSE 61; RESP 18; O2SAT 98
--- NOTE | 2024-07-18 21:49 | DVHPN2 ---
Progress Note - Dictate Date Seen: Jul 18, 2024 Medical Necessity Reason Pt with a Central, PICC or Fol: No Subjective Ms. Stas Eastman is a 58 years old right-handed female with a history of seizure, dementia, schizophrenia, bipolar disorder, obesity, she came to the [facility] on 07/14/2024 with a chief company of general weakness/gait disturbance. I have seen and examined the patient, I have talked to her nurse, she is doing fine, no seizure activity, oriented to person and place only, he looks happy Dilantin, 07/16/2024: <2, 07/17/2024: <2 , 07/18/2024: 6.9/free: 0.9 (Alb: 2.5) Depakote, 07/16/2024: 6.2, 07/17/2024: 3.8, 07/18/2024: 22.4 Hepatitis , 07/15/2024: Negative BUN/CR, 07/14/2024: WBC: 1, urine leukocyte negative WBC/HB/PLT/MCV, 07/16/2024: 7.8/9.1/155/81.6 Na, 07/14/2024: 129, 130, 07/15/24: 131, 07/16/24:133 TBI/AST/ALT/AP, 07/14/2024: 2.6/254/164/146, 07/16/2024: 1.7/158/110/166 Vitamin B12, 07/17/24: 4000 Folic acid, 07/17/2024: 11.05 TSH, 07/15/2024: 1.79 EEG, 07/17/2024: Normal Ultrasound, abdomen, 07/15/2024: Normal exam of the abdomen Chest x-ray, 07/14/2024: No acute intrathoracic abnormality. CT head, 07/14/2024: No acute intracranial process. (no hydrocephalus) MRI head 07/17/2024: No acute infarct, intracranial hemorrhage, mass effect, or hydrocephalus. vital signs Vital Sign Date Time Temp Pulse Resp B/P (MAP) Pulse Ox O2 Delivery O2 Flow Rate FiO2 07/18/24 17:00 99.2 71 17 99/57 (71) 98 99.2 07/18/24 08:00 Room Air* 0 21 Total Intake and Output 07/17/24 07/17/24 07/18/24 15:00 23:00 07:00 Intake Total 50 ml 900 ml 600 ml Balance 50 ml 900 ml 600 ml medications Current Medications Medications Dose Ordered Sig/Elizabet Route Start Time Stop Time Status Last Admin Dose Admin Ondansetron HCl 4 mg Q4HP PRN IV 07/14/24 09:00 Acetaminophen 650 mg Q6HP PRN PO 07/14/24 09:00 07/15/24 20:06 650 MG Nitroglycerin 0.4 mg Q5MINP PRN SL 07/14/24 09:00 Morphine Sulfate 2 mg Q30M PRN IV 07/14/24 10:00 Chlorthalidone 25 mg DAILY PO 07/14/24 10:00 07/18/24 09:29 25 MG Pantoprazole Sodium 40 mg DAILY PO 07/14/24 10:00 07/18/24 09:29 40 MG Patient Own Medication 1 tab DAILY PO 07/14/24 10:00 07/14/24 10:13 1 TAB Enoxaparin Sodium 40 mg DAILY SC 07/14/24 10:00 07/18/24 09:29 40 MG Famotidine 20 mg DAILY IV 07/14/24 10:00 07/18/24 09:28 20 MG Ibuprofen 400 mg Q6HP PRN PO 07/14/24 18:45 07/14/24 20:15 400 MG Ceftriaxone Sodium 50 ml @ 100 mls/hr DAILY@09 IV 07/14/24 20:30 07/18/24 09:28 100 MLS/HR Lorazepam 1 mg ONCE PRN IV 07/16/24 19:00 Phenytoin Sodium 300 mg Q12HR PO 07/18/24 10:00 07/18/24 20:57 300 MG Divalproex Sodium 500 mg BID PO 07/18/24 10:00 07/18/24 20:56 500 MG objective General: the patient is well developed and nourished. No acute distress. MENTAL STATUS: Awake and alert. Oriented to person, place SPEECH, LANGUAGE, HIGHER CORTICAL FUNCTION: no aphasia or dysathria. CRANIAL NERVES: Pupils are equal, round and reactive. EOMs full and conjugate. No nystagmus. Facial sensation intact in all three divisions bilaterally. Mandibular strength intact. Facial muscles symmetrical and strength intact. SENSATION: Sensation to touch and pinprick is normal. MOTOR: Normal tone in the upper and lower extremity. Normal muscle bulk. No fasciculations. No abnormal movements or posturing. Muscle strength of the major groups in the extremities is 5/5. REFLEXES: Deep tendon reflexes are symmetrical. No pathological reflexes. CEREBELLAR/COORDINATION: Finger to nose is normal bilaterally. 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 Alzheimer's disease ? Secondary to chronic psychiatric disorder Seizure disorder/grand mal seizure, ? Atypical features Assessment/Plan Monitoring Supportive treatment Depakote 500 mg b.i.d. Dilantin 300 mg HS for now DVT prophylaxis/Lovenox GI prophylax Up to chair Physical therapy Okay to discharge from a neurologic point of view This medical document was created using an electronic medical record system with [employer] dictation system. Although this document has been carefully reviewed, there may still be some phonetic and typographical errors. These areas are purely typographical due to imperfections of the software programs, and do not reflect any compromise in the patient's medical care. Prognosis poor Dietary Evaluation Review Recommendations by RD: Dietary education by RD Comments: 1) Initiate MVI @ 1 tb qd 2) Encourage optimal PO intake. If < 50%, initiate Ensure Enlive qd 3) Refer to outpatient RD for weight management 4) Follow-up with cardiology, neurology, and psychology 5) Continue to monitor I&O, labs, and skin integrity Expected Outcomes/Goals: 1) appetite and labs to improve 2) GI symptoms to improve 3) f/u in 3-5 days Plan discussed with: Other THANH MERCHANT MD Jul 18, 2024 21:49
[2024-07-19 05:00] VITALS: BP 117/68; PULSE 57; RESP 18; O2SAT 98
[2024-07-19 07:34] LABS: Basophils # (auto) 0 10 ^3/uL (0-0.2); Basophils % (auto) 0.5 % (0.0-2.0); Eosinophils # (auto) 0.1 10 ^3/uL (0-0.8); Eosinophils % (auto) 1.5 % (0.0-7.0); Hematocrit 30.4 % (36.0-46.0); Hemoglobin 10.4 g/dL (12.2-16.2); Lymphocytes # (auto) 1.3 10 ^3/uL (0.4-5.4); Lymphocytes % (auto) 16.6 % (10.0-50.0); Mean Corpuscular Hemoglobin 27.7 pg (28.0-32.0); Mean Corpuscular Volume 81.5 fL (80.0-100.0); Monocytes # (auto) 0.8 10 ^3/uL (0-1.3); Monocytes % (auto) 9.8 % (0.0-12.0); Neutrophils # (auto) 5.7 10 ^3/uL (1.6-8.6); Neutrophils % (auto) 71.6 % (37.0-80.0); Nucleated Red Blood Cells % 0.3 %; Platelet Count (auto) 313 10^3/uL (140-450); Red Blood Cells 3.73 10^6/uL (4.0-5.20); Red Cell Distribution Width 15.9 % (11.8-14.3); White Blood Cell 7.9 10^3/uL (4.4-10.8)
[2024-07-19 08:00] VITALS: PULSE 65; RESP 16; O2SAT 98
[2024-07-19 08:08] LABS: Alanine Aminotransferase 154 U/L (7-40); Albumin 3.3 g/dL (3.2-4.8); Alkaline Phosphatase 355 U/L (46-116); Anion Gap 10 (5-15); Aspartate Aminotransferase 205 U/L (13-40); BUN/Creatinine Ratio 11.5 (10.0-20.0); Bilirubin, Total 1.2 mg/dL (0.2-1.0); Blood Urea Nitrogen 7 mg/dL (9-23); Carbon Dioxide 24 mmol/L (20-31); Chloride 99 mmol/L (98-107); Glucose 115 mg/dL (74-106); Magnesium 1.7 mg/dL (1.6-2.6); Potassium 4.1 mmol/L (3.5-5.1); Sodium 133 mmol/L (136-145); Total Protein 6.4 g/dL (5.7-8.2)
[2024-07-19 08:32] VITALS: BP 94/59; PULSE 65; RESP 16; TEMP 98.4; O2SAT 98
[2024-07-19 12:39] VITALS: BP 105/54; PULSE 56; RESP 18; TEMP 98; O2SAT 99
[2024-07-19] MEDS ORDERED: DIVA-91 PO (15:06)
[2024-07-19] MEDS ORDERED: PHEN1CAP38 PO (15:06)
[2024-07-19 15:57] VITALS: BP 113/68; PULSE 66; RESP 18; TEMP 36.7; O2SAT 99
[2024-07-19 16:16] VITALS: BP 113/68; PULSE 66; RESP 16; TEMP 98.1; O2SAT 100
--- NOTE | 2024-07-19 16:17 | DVHDS2 ---
Discharge Summary Date of Admission Jul 14, 2024 at 08:58 Date of Discharge: Jul 19, 2024 Labs/Diagnostic Data: Laboratory Results Test 07/19/24 07:13 07/18/24 06:47 07/17/24 07:01 07/15/24 05:06 White Blood Count 7.9 10^3/uL (4.4-10.8) Red Blood Count 3.73 10^6/uL (4.0-5.20) Hemoglobin 10.4 g/dL (12.2-16.2) Hematocrit 30.4 % (36.0-46.0) Mean Corpuscular Volume 81.5 fL (80.0-100.0) Mean Corpuscular Hemoglobin 27.7 pg (28.0-32.0) Mean Corpuscular Hemoglobin Concent 34.0 g/dL (32.0-36.0) Red Cell Distribution Width 15.9 % (11.8-14.3) Platelet Count 313 10^3/uL (140-450) Mean Platelet Volume 9.0 fL (6.9-10.8) Neutrophils (%) (Auto) 71.6 % (37.0-80.0) Lymphocytes (%) (Auto) 16.6 % (10.0-50.0) Monocytes (%) (Auto) 9.8 % (0.0-12.0) Eosinophils (%) (Auto) 1.5 % (0.0-7.0) Basophils (%) (Auto) 0.5 % (0.0-2.0) Neutrophils # (Auto) 5.7 10 ^3/uL (1.6-8.6) Lymphocytes # (Auto) 1.3 10 ^3/uL (0.4-5.4) Monocytes # (Auto) 0.8 10 ^3/uL (0-1.3) Eosinophils # (Auto) 0.1 10 ^3/uL (0-0.8) Basophils # (Auto) 0 10 ^3/uL (0-0.2) Nucleated Red Blood Cells 0.3 % Sodium Level 133 mmol/L (136-145) Potassium Level 4.1 mmol/L (3.5-5.1) Chloride Level 99 mmol/L (98-107) Carbon Dioxide Level 24 mmol/L (20-31) Anion Gap 10 (5-15) Blood Urea Nitrogen 7 mg/dL (9-23) Creatinine 0.61 mg/dL (0.550-1.02) Glomerular Filtration Rate Calc 104 mL/min (>90) BUN/Creatinine Ratio 11.5 (10.0-20.0) Serum Glucose 115 mg/dL (74-106) Calcium Level 10.0 mg/dL (8.7-10.4) Magnesium Level 1.7 mg/dL (1.6-2.6) Total Bilirubin 1.2 mg/dL (0.2-1.0) Aspartate Amino Transferase (AST) 205 U/L (13-40) Alanine Aminotransferase (ALT) 154 U/L (7-40) Alkaline Phosphatase 355 U/L (46-116) Total Protein 6.4 g/dL (5.7-8.2) Albumin 3.3 g/dL (3.2-4.8) Phenytoin (Dilantin) Level 6.5 ug/mL (10-20) Valproic Acid Level 22.4 ug/mL (50-100) Vitamin B12 Level > 4000 pg/mL (211-911) Folic Acid 11.05 ng/mL (>5.38) Thyroid Stimulating Hormone (TSH) 1.79 uIU/mL (0.55-4.78) Hepatitis A IgM Antibody Negative Hepatitis B Surface Antigen Negative (Negative) Hepatitis B Core IgM Antibody Negative (Negative) Hepatitis C Antibody Negative (Negative) Test 07/14/24 14:08 07/14/24 09:40 07/14/24 08:53 Urine Color Dark-yellow (Yellow) Urine Clarity Clear (Clear) Urine pH 6.5 (5.0-9.0) Urine Specific [place] 1.020 (1.001-1.035) Urine Protein 1+ (Negative) Urine Ketones Negative (Negative) Urine Blood Trace /uL (Negative) Urine Nitrite Negative (Negative) Urine Bilirubin 2+ (Negative) Urine Urobilinogen 6 mg/dL (Negative) Urine Leukocyte Esterase Negative /uL (Negative) Urine RBC 5 /hpf (0 - 4) Urine Microscopic WBC 1 /HPF (0-5) Urine Squamous Epithelial Cells Few /hpf (<5) Urine Bacteria Few /hpf (None Seen) Urine Glucose Normal mg/dL (Normal) Lactic Acid Level 0.7 mmol/L (0.4-2.0) Troponin I High Sensitivity 4 ng/L (</=34) Other Laboratory Tests 07/19/24 07:13 Brief Hx & Hospital Course: 58-year-old female with a known history of epilepsy, Alzheimer dementia, with a previous history of polysubstance abuse presented to the hospital with a generalized weakness and multiple falls found to have generalized weakness with recurrent falls. Patient underwent multiple imaging. MRI brain shows no evidence of acute infarct. Patient was seen by Dr. Lennon neurology who recommended seizure medications. Patient was continued seizure medication. Patient's Dilantin level was low but correct for albumin. Patient is cleared by Neurology to be discharged. Please follow up with the PCP and Neurology in 1-2 weeks also patient LFTs were high, atorvastatin was held, patient needs to follow up with a repeat liver function tests with a less than one week with the PCP. Condition at Discharge: Stable Final Diagnosis/Problems List 58-year-old female with a known history of epilepsy, Alzheimer dementia, with a previous history of polysubstance abuse presented to the hospital with a generalized weakness and multiple falls found to have 1. Generalized weakness 2. Recurrent falls, check TSH RPR vitamin B12 and folic acid 3. Transaminitis, hold atorvastatin, right upper quadrant abdominal ultrasound and check acute hepatitis panel. 4. Epilepsy 5. Alzheimer dementia 6. Previous history of polysubstance abuse Discharge Disposition: Home SNF Discharge Will this Physician continue t: No Discharge Instruct/Medications Diet: Cardiac 2g Na,low cholest Activity: No Restrictions, As Tolerated Follow Up/Referral: Follow up with the PCP in one week with a repeat liver function tests. Follow up with the Neurology Dr. Lennon in 1-2 weeks Medications: Resume home medications Discharge Statement: "Patient was advised to return to the ER or call 911 if any headaches, dizziness, shortness of breath, chest pain, abdominal pain, bleeding, fevers, or worsening of medical condition. Patient was counseled about treatment plan, medications, possible side effects, patientverbalized understanding. All questions were answered to the best of my ability. This discharge took greater then 30 minutes in planning, reviewing documentation, counseling the patient, and discussing with other team members." ASSESSMENT ASSESSMENT Assessment 58-year-old female with a known history of epilepsy, Alzheimer dementia, with a previous history of polysubstance abuse presented to the hospital with a generalized weakness and multiple falls found to have 1. Generalized weakness 2. Recurrent falls, check TSH RPR vitamin B12 and folic acid 3. Transaminitis, hold atorvastatin, right upper quadrant abdominal ultrasound and check acute hepatitis panel. 4. Epilepsy 5. Alzheimer dementia 6. Previous history of polysubstance abuse Date of Service: Jul 19, 2024 Billing Provider: RAMESH JEFFERY MD Common Visit Codes: 71273-CWQ/OBS DISCH DAY >30min RAMESH JEFFERY MD Jul 19, 2024 16:17
== END 2024-07-19 16:30 | disposition home or self-care (01) | DRG 426 ==
LOC: ER 07:10 → OVERFLOW 08:58 → WEST WING 09:26
PROVIDERS: ADMIT Internal Medicine; ATTEND Internal Medicine
DX: E87.1 Hypo-osmolality and hyponatremia (principal); G93.41 Metabolic encephalopathy; G30.9 Alzheimer's disease, unspecified; F02.82 Dementia in other diseases classified elsewhere, unspecified severity, with psychotic disturbance; G90.89 Other disorders of autonomic nervous system; G40.909 Epilepsy, unspecified, not intractable, without status epilepticus; R62.7 Adult failure to thrive; R29.6 Repeated falls; F31.9 Bipolar disorder, unspecified; E66.9 Obesity, unspecified; F17.210 Nicotine dependence, cigarettes, uncomplicated; R74.01 Elevation of levels of liver transaminase levels; Z83.3 Family history of diabetes mellitus; Z81.8 Family history of other mental and behavioral disorders; Z79.899 Other long term (current) drug therapy; Z68.30 Body mass index [BMI] 30.0-30.9, adult; Z88.5 Allergy status to narcotic agent; Z79.84 Long term (current) use of oral hypoglycemic drugs
CPT/HCPCS: 36415; 70450; 70551; 71045; 76705; 80048; 80053; 80074; 80164; 80185; 81001; 82607; 82746; 83605; 83735; 84443; 84484; 85025; 87040; 93005; 93306; 93886; 95819; 96374; 97110; 97116; 97163; 97530; G0378; J0131; J3490

== ENCOUNTER 2024-10-28 07:01 | Inpatient (IN) | payer MEDICAID ==
[~2024-10-28] VITALS: Ht 157.5 cm; Wt 77.4 kg
[~2024-10-28 07:01] MED LIST: ALBU108A5 INH; ARIP10TA30 PO; BUSP15TA60 PO; CHLO25TA2 PO; DIVA-91 PO; FLUT1INH2 INH; HYDR50CA2 PO; PANT40T PO; PHEN1CAP38 PO; SEMA3TAB2 PO; SPIR25TA8 PO; [UNRECOGNIZED DRUG - CODE] PO; [UNRECOGNIZED DRUG - CODE] PO
--- NOTE | 2024-10-28 07:05 | ED.PDOC ---
HPI Comments 59-year-old female presents here with 7 days of chest discomfort shortness of breath, and dizziness. Patient states that over the last 7 days she has been having pressure-like chest discomfort with radiation to the left arm that last for sec. She states that she can be doing anything -can be at rest, doing dishes, and the chest pain starts. She has also been as feeling short of breath last several days. Denies any recent cough cold runny nose fever or chills. She also has been feeling very dizzy. She states that when she walks she feels off balance. Denies any weakness to 1 arm or 1 leg. She was here few months ago for similar reasons and at that time she had fainted/fallen. Daughter brought her in today before she faints. Denies any slurred speech. She reports her chest pain has a 7/10 currently. Chief Complaint: Chest Pain Time Seen by MD: 07:40 Primary Care Provider: RHONDA Reviewed Notes: Medications, Allergies Allergies: Coded Allergies: Belladonna (Verified Allergy, Unknown, 07/14/24) Home Meds Active Scripts Phenytoin Sodium (DILANTIN CAPSULE) 100 Mg Cp, 300 MG PO Q12HR for 30 Days, #180 CAP Prov:RAMESH JEFFERY MD 07/19/24 Divalproex Sodium (Depakote) 500 Mg Tab, 1 TAB PO BID, #60 TAB 1 Refill Prov:RAMESH JEFFERY MD 07/19/24 Reported Medications Buspirone Hcl (Buspirone Hcl) 15 Mg Tab, 1 TAB PO HS 07/14/24 Hydroxyzine Pamoate (Hydroxyzine Pamoate) 50 Mg Cap, 1 CAP PO BID 07/14/24 Aripiprazole (Aripiprazole Odt) 10 Mg Tab, 1 TAB PO HS 07/14/24 Albuterol Sulfate (Albuterol Sulfate Hfa) 108 Mcg/Act Aer, 2 PUFF INH PRN for SHORTNESS OF BREATH EVERY 4-6 HRS NEEDED FOR SOB 07/14/24 Etodolac (Etodolac) 500 Mg Tab, 1 TAB PO BID PRN for PAIN 07/14/24 Spironolactone (Spironolactone) 25 Mg Tab, 1 TAB PO DAILY 07/14/24 Metformin Hydrochloride (Glumetza) 1,000 Mg Tab, 1 TAB PO BID 07/14/24 Fluticasone Furoate (Inhalatio (Arnuity Ellipta) 100 Mcg/Act Inh, 1 PUFF INH DAILY 07/14/24 Chlorthalidone (Chlorthalidone) 25 Mg Tab, 1 TAB PO DAILY 07/14/24 Pantoprazole Sodium Sesquihydr (Pantoprazole Sodium) 40 Mg Tab, 1 TAB PO DAILY 07/14/24 Semaglutide (Rybelsus) 3 Mg Tab, 1 TAB PO DAILY 07/14/24 Information Source: Patient Mode of Arrival: Ambulatory Severity: Moderate Timing: Weeks Duration: Since onset Prehospital treatment: None Location: Chest (L) Radiation: No Radiation Quality: Sharp, Pressure Onset: At Rest Cardiac Risk Factors: Smoker, HTN, Diabetes PE Risk Factors: None History of: None Modifying Factors: Nothing Associated Signs and Symptoms: Other (dizziness) Past Medical History PAST MEDICAL HISTORY: Asthma, DM, HTN, Seizures Surgical History: Denies all surgeries 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 Family History Family History: Unknown Social History Smoker: Other Alcohol: Denies ETOH Use Drugs: Denies Drug Use Lives In: Home Constitutional: reports: weakness; denies: chills, diaphoresis, fatigue, fever, malaise, sweats, others EENTM: denies: blurred vision, double vision, ear bleeding, ear discharge, ear drainage, ear pain, ear ringing, eye pain, eye redness, hearing loss, mouth pain, mouth swelling, nasal discharge, nose bleeding, nose congestion, nose pain, photophobia, tearing, throat pain, throat swelling, voice changes, others Respiratory: denies: cough, hemoptysis, orthopnea, SOB at rest, shortness of breath, SOB with excertion, stridor, wheezing, others Cardiovascular: reports: chest pain; denies: dizzy spells, diaphoresis, Dyspnea on exertion, edema, irregular heart beat, left arm pain, lightheadedness, palpitations, PND, syncope, others Gastrointestinal: denies: abdomen distended, abdominal pain, blood streaked bowels, constipated, diarrhea, dysphagia, difficulty swallowing, hematemesis, melena, nausea, poor appetite, poor fluid intake, rectal bleeding, rectal pain, vomiting, others Genitourinary: denies: abnormal vagina bleeding, burning, dyspareunia, dysuria, flank pain, frequency, hematuria, incontinence, pain, , vagina discharge, urgency, others Neurological: reports: dizziness, weakness; denies: fainting, headache, left sided numbness, left sided weakness, numbness, paresthesia, pre-existing deficit, right sided numbness, right sided weakness, seizure, speech problems, tingling, tremors, others Musculoskeletal: denies: back pain, gout, joint pain, joint swelling, muscle pain, muscle stiffness, neck pain, others Integumetry: denies: bruises, change in color, change in hair/nails, dryness, laceration, lesions, lumps, rash, wounds, others Allergic/Immunocompromised: denies: Difficulty Healing, Frequent Infections, Hives, Itching, others Hematologic/Lymphatic: denies: anemia, blood clots, easy bleeding, easy bruising, swollen glands, others Endocrine: denies: excessive hunger, excessive sweating, excessive thirst, excessive urination, flushing, intolerance to cold, intolerance to heat, unexplained weight gain, unexplained weight loss, others Psychiatric: denies: anxiety, bipolar disorder, depression, hopeless, panic disorder, schizophrenia, sleepless, suicidal, others All Other Systems: Reviewed and Negative Physical Exam General Appearance: No Apparent Distress, Normal HEENT: Normal ENT Inspection, Pharynx Normal, TMs Normal Neck: Full Range of Motion, Non-Tender, Normal, Normal Inspection Respiratory: Chest Non-Tender, Lungs Clear, No Accessory Muscle Use, No Respiratory Distress, Normal Breath Sounds Cardiovascular: No Edema, No JVD, No Murmur, No Gallop, Normal Peripheral Pulses, Regular Rate/Rhythm Breast Exam: Deferred Gastrointestinal: No Organomegaly, Non Tender, No Pulsatile Mass, Normal Bowel Sounds, Soft Genitalia: Deferred Pelvic: Deferred Rectal: Deferred Extremities: No calf tenderness, Normal capillary refill, Normal inspection, Normal range of motion, Non-tender, No pedal edema Musculoskeletal : Apperance: Normal 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 Appears unbalance. 5/5 strength bilateral upper extremities. 4/5 strength bilateral lower extremities. No slurred speech no facial droop.) Cerebellar Function: Normal Reflexes: Normal Skin: Dry, Normal Color, Warm Lymphatic: No Adenopathy EKG EKG #1: Comments Normal sinus rhythm rate of 69 inverted T-waves in AVR V1 minimal ST depression in lateral leads. EKG #2: Comments Normal sinus rhythm rate of 61 mild inverted T-waves in V5 and V6 Was a procedure done? Was a procedure done?: No CP Differential Dx Differential Diagnosis: Other Differential Diagnosis: Other Differential Diagnosis: Angina, Other Comment Stroke, TIA, angina, pneumonia, vertigo, brain mass, UTI, coronary artery syndrome, epilep Mil episode, electrolyte disturbance, hypovolemia X-Ray, Labs, Meds, VS Vital Signs Date Time Temp Pulse Resp B/P (MAP) Pulse Ox O2 Delivery O2 Flow Rate FiO2 10/28/24 08:05 61 10/28/24 07:04 97.2 79 17 151/81 98 97.2 Lab Test 10/28/24 08:44 10/28/24 07:20 Range/Units Troponin I High Sensitivity Pending < 3 L </=34 ng/L White Blood Count 4.8 4.4-10.8 10^3/uL Red Blood Count 4.93 4.0-5.20 10^6/uL Hemoglobin 12.9 12.2-16.2 g/dL Hematocrit 38.8 36.0-46.0 % Mean Corpuscular Volume 78.7 L 80.0-100.0 fL Mean Corpuscular Hemoglobin 26.2 L 28.0-32.0 pg Mean Corpuscular Hemoglobin Concent 33.2 32.0-36.0 g/dL Red Cell Distribution Width 18.2 H 11.8-14.3 % Platelet Count 271 140-450 10^3/uL Mean Platelet Volume 8.2 6.9-10.8 fL Neutrophils (%) (Auto) 56.9 37.0-80.0 % Lymphocytes (%) (Auto) 34.8 10.0-50.0 % Monocytes (%) (Auto) 6.4 0.0-12.0 % Eosinophils (%) (Auto) 1.3 0.0-7.0 % Basophils (%) (Auto) 0.6 0.0-2.0 % Neutrophils # (Auto) 2.7 1.6-8.6 10 ^3/uL Lymphocytes # (Auto) 1.7 0.4-5.4 10 ^3/uL Monocytes # (Auto) 0.3 0-1.3 10 ^3/uL Eosinophils # (Auto) 0.1 0-0.8 10 ^3/uL Basophils # (Auto) 0 0-0.2 10 ^3/uL Nucleated Red Blood Cells 0.1 % Sodium Level 140 136-145 mmol/L Potassium Level 3.8 3.5-5.1 mmol/L Chloride Level 104 98-107 mmol/L Carbon Dioxide Level 25 20-31 mmol/L Anion Gap 11 5-15 Blood Urea Nitrogen 13 9-23 mg/dL Creatinine 0.78 0.550-1.02 mg/dL Glomerular Filtration Rate Calc 88 >90 mL/min BUN/Creatinine Ratio 16.7 10.0-20.0 Serum Glucose 104 74-106 mg/dL Calcium Level 10.0 8.7-10.4 mg/dL Total Bilirubin 0.4 0.2-1.0 mg/dL Aspartate Amino Transferase (AST) 24 13-40 U/L Alanine Aminotransferase (ALT) 16 7-40 U/L Alkaline Phosphatase 126 H 46-116 U/L Total Protein 7.3 5.7-8.2 g/dL Albumin 3.8 3.2-4.8 g/dL Lipase 36 12-53 U/L Current Medications Medications (Trade) Dose Ordered Sig/Elizabet Route Start Time Stop Time Status Last Admin Aspirin 325 mg ONCE ONCE PO 10/28/24 07:15 10/28/24 07:16 DC 10/28/24 07:45 [place] [address] Ph: [phone] DIAGNOSTIC IMAGING Diagnostic Imaging Report : [id number] Signed PATIENT: ANNIA MCINTOSH LACCT: [id number] UNIT: [id number] : 1965 LOC: ER ROOM / BED: / AGE / SEX: 59 / F ADM STATUS: REG ER SERVICE 0739 ORDERING PHYSICIAN: TATI DRISCOLL MD PROCEDURE(s): HWOCT - HEAD WITHOUT CONTRAST REASON: Rule out TIA stroke intracranial bleed ORDER NUMBER(s): [id number], ACCESSION NUMBER(s): [id number] CT HEAD WITHOUT CONTRAST INDICATION: Rule out TIA stroke intracranial bleed EXAM DATE: 10/28/2024 07:45 AM COMPARISON: MRI BRAIN HEAD WO CONTRAST on DOS: 07/17/24, CT HEAD WITHOUT CONTRAST on DOS: 07/14/24 RADIATION DOSE: CTDIvol: 49.45 mGy, DLP: 792.9 mGy*cm PROCEDURE: CT scans of the head were obtained from the vertex to the skull base. Sagittal and coronal reconstructions were provided. All CT scans at this medical facility are performed using dose modulation techniques as appropriate to a performed exam including the following: Automated exposure control was utilized; adjustment of the MA and/or KV according to patient size; and use of iterative reconstruction technique. FINDINGS: There is sulcal and ventricular prominence. The brainshows normal morphology and vera-white matter differentiation, without intracranial hemorrhage, extra-axial fluid collection, mass effect or acute large vessel infarct. The ventricles are normal in size. The basal cisterns are patent. The skull and visible facial bones are intact. The paranasal sinuses, mastoid air cells and middle ear cavities are well-aerated. The soft tissues of the scalp are unremarkable. IMPRESSION: No acute intracranial abnormality. ATED BY: EROS LENNON MD DICTATED DATE/TIME: 10/28/24824 SIGNED BY: EROS LENNON MD SIGNED DATE/TIME: 10/28/24824 [place] [address] Ph: [phone] DIAGNOSTIC IMAGING Diagnostic Imaging Report : [id number] Signed PATIENT: ANNIA MCINTOSH LACCT: [id number] UNIT: [id number] : 1965 LOC: ER ROOM / BED: / AGE / SEX: 59 / F ADM STATUS: REG ER SERVICE 8 ORDERING PHYSICIAN: TATI DRISCOLL MD PROCEDURE(s): CXR2 - CHEST TWO VIEWS ROUTINE REASON: Chest pain ORDER NUMBER(s): [id number], ACCESSION NUMBER(s): [id number] CHEST RADIOGRAPH Indication: Chest pain Technique: Frontal and lateral view of the chest was obtained Comparison: XY CHEST XRAY 1 VIEW on DOS: 07/14/24, CR CHEST 2 VIEW on DOS: 09/29/23 FINDINGS: Lines and Tubes: None Lungs: Clear Pleura: No effusion. No pneumothorax. Cardiomediastinal contours: Unremarkable Bones: Unremarkable IMPRESSION: No evidence of acute disease. ATED BY: BACILIO ATKINS MD DICTATED DATE/TIME: 10/28/24812 SIGNED BY: BACILIO ATKINS MD SIGNED DATE/TIME: 10/28/24812 59-year-old female presents here with chest discomfort shortness of breath, dizziness and unbalanced gait for 7 days. On my examination she has very unbalanced gait and sways left to right and right to left during exam. However there were no focal deficits. She has no slurred speech no facial droop and although she has weakness to her legs it is equal. At this time given this is 7 days out she is out of the time window for tPA or thrombectomy. I am concerned there may has been a TIA/stroke also. I have ordered a CT scan of the brain for evaluation. Additionally regarding her chest pain she is at high-risk for heart disease and has had a heart attack previously. I have ordered a CBC, BMP, troponin, and chest x-ray. EKG has been done upon her arrival which does demonstrate some inverted T-waves in V1 and also mild ST depression in lateral leads. Patient has been given aspirin in the ER. CBC BMP troponin and chest x-ray have all returned within normal limits. CT scan of the brain also is unremarkable. However at this time she does have an elevated heart score and multiple risk factors. I am concerned about acute coronary syndrome and also concern for her unbalanced gait, possible TIA/stroke to the cerebellum that will require further imaging. At this time hospitalist team has been contacted for admission. Patient has been stable while in the ER. Time of 1ST Reevaluation: 08:10 Reevaluation 1ST: Unchanged Patient Education/Counseling: Diagnosis, Treatment Family Education/Counseling: Diagnosis, Treatment SEPSIS Sepsis Screen Physician Orders Electrocardigram (10/28/24 07:04) Troponin-I Hs (10/28/24 08:04) Troponin-I Hs (10/28/24 10:04) Electrocardigram (10/28/24 08:04) Electrocardigram (10/28/24 10:04) Chest Two Views Routine (10/28/24 07:39) Head Without Contrast (10/28/24 07:39) Vital Signs Date Time Temp Pulse Resp B/P (MAP) Pulse Ox O2 Delivery O2 Flow Rate FiO2 10/28/24 08:05 61 10/28/24 07:04 97.2 79 17 151/81 98 97.2 Laboratory Tests Test 10/28/24 07:20 White Blood Count 4.8 10^3/uL (4.4-10.8) Medications Medications Dose Ordered Sig/Elizabet Route Start Time Stop Time Status Last Admin Dose Admin Aspirin 325 mg ONCE ONCE PO 10/28/24 07:15 10/28/24 07:16 DC 10/28/24 07:45 Departure 1 Departure Time of Disposition: 07:46 Impression: Primary Impression: Chest pain Qualified Codes: R07.9 - Chest pain, unspecified Additional Impression: Abnormality of gait due to impairment of balance Disposition: ADMITTED INPATIENT Condition: Fair Critical Care Note Critical Care Time?: No Stability Stability form required: No Heart Score Heart Score: Heart Score Response (Comments) Value History Moderate Suspicious 1 EKG Repolarization Disturb 1 Age 45-64 1 Risk Factors >3 or Hx ASHD 2 Troponin Normal limit 0 Total 5 I personally scribed for TATI DRISCOLL MD ([email or web address]) on 10/28/24 at 07:05. Electronically submitted by Rachel Herring ([email or web address]). I personally scribed for TATI DRISCOLL MD ([email or web address]) on 10/28/24 at 07:20. Electronically submitted by Rachel Herring ([email or web address]). I personally scribed for TATI DRISCOLL MD ([email or web address]) on 10/28/24 at 07:47. Electronically submitted by Rachel Herring ([email or web address]). I personally scribed for TATI DRISCOLL MD ([email or web address]) on 10/28/24 at 08:38. Electronically submitted by Rachel Herring ([email or web address]). TATI DRISCOLL MD Oct 28, 2024 07:05
[2024-10-28 07:57] LABS: Hemoglobin 12.9 g/dL (12.2-16.2)
[2024-10-28 07:59] LABS: Hematocrit 38.8 % (36.0-46.0); Mean Corpuscular Hemoglobin 26.2 pg (28.0-32.0); Mean Corpuscular Volume 78.7 fL (80.0-100.0); Nucleated Red Blood Cells % 0.1 %
--- NOTE | 2024-10-28 08:16 | DVH ---
CHEST RADIOGRAPH Indication: Chest pain Technique: Frontal and lateral view of the chest was obtained Comparison: XY CHEST XRAY 1 VIEW on DOS: 07/14/24, CR CHEST 2 VIEW on DOS: 09/29/23 FINDINGS: Lines and Tubes: None Lungs: Clear Pleura: No effusion. No pneumothorax. Cardiomediastinal contours: Unremarkable Bones: Unremarkable IMPRESSION: No evidence of acute disease.
[2024-10-28 08:25] LABS: Alanine Aminotransferase 16 U/L (7-40); Anion Gap 11 (5-15); BUN/Creatinine Ratio 16.7 (10.0-20.0); Blood Urea Nitrogen 13 mg/dL (9-23); Calcium 10.0 mg/dL (8.7-10.4); Carbon Dioxide 25 mmol/L (20-31); Chloride 104 mmol/L (98-107); Glucose 104 mg/dL (74-106); Potassium 3.8 mmol/L (3.5-5.1); Sodium 140 mmol/L (136-145); Total Protein 7.3 g/dL (5.7-8.2)
[2024-10-28 08:26] LABS: Albumin 3.8 g/dL (3.2-4.8)
--- NOTE | 2024-10-28 08:27 | DVH ---
CT HEAD WITHOUT CONTRAST INDICATION: Rule out TIA stroke intracranial bleed EXAM DATE: 10/28/2024 07:45 AM COMPARISON: MRI BRAIN HEAD WO CONTRAST on DOS: 07/17/24, CT HEAD WITHOUT CONTRAST on DOS: 07/14/24 RADIATION DOSE: CTDIvol: 49.45 mGy, DLP: 792.9 mGy*cm PROCEDURE: CT scans of the head were obtained from the vertex to the skull base. Sagittal and coronal reconstructions were provided. All CT scans at this medical facility are performed using dose modulation techniques as appropriate t o a performed exam including the following: Automated exposure control was utilized; adjustment of th e MA and/or KV according to patient size; and use of iterative reconstruction technique. FINDINGS: There is sulcal and ventricular prominence. The brainshows normal morphology and vera-whi te matter differentiation, without intracranial hemorrhage, extra-axial fluid collection, mass effect or acute large vessel infarct. The ventricles are normal in size. The basal cisterns are patent. The skull and visible facial bones are intact. The paranasal sinuses, mastoid air cells and middle ear c avities are well-aerated. The soft tissues of the scalp are unremarkable. IMPRESSION: No acute intracranial abnormality.
[2024-10-28 08:32] LABS: Alkaline Phosphatase 126 U/L (46-116)
[2024-10-28 08:37] LABS: Bilirubin, Total 0.4 mg/dL (0.2-1.0)
[2024-10-28 08:49] LABS: Lipase 36 U/L (12-53)
--- NOTE | 2024-10-28 10:07 | ECG ---
[facility] Test Date: 2024-10-28 Test Time: 10:06:28 Pat Name: ANNIA MOORE Department: ED Room: 0295T Gender: F Epic Ambulatory Specialists: rom : 1965 Requested By: TATI DRISCOLL Order Number: [id number] Reading MD: Michael Escalante Measurements Intervals [place] Rate: 55 P: 40 MS: 162 QRS: 16 QRSD: 90 T: 33 QT: 425 QTc: 407 Interpretive Statements Sinus rhythm Electronically Signed On 10-30-2024 18:50:10 PDT by Michael Escalante Please click the below link to view image of tracing.
--- NOTE | 2024-10-28 10:08 | ECG ---
[facility] Test Date: 2024-10-28 Test Time: 08:05:23 Pat Name: ANNIA OMORE Department: ED Room: 0295T Gender: F Deblocker: rom : 1965 Requested By: TATI DRISCOLL Order Number: [id number] Reading MD: Michael Escalante Measurements Intervals [place] Rate: 61 P: 37 VA: 158 QRS: 14 QRSD: 82 T: 28 QT: 459 QTc: 463 Interpretive Statements Sinus rhythm Electronically Signed On 10-30-2024 18:50:03 PDT by Michael Escalante Please click the below link to view image of tracing.
--- NOTE | 2024-10-28 13:20 | DVHHP2 ---
History of Present Illness Reason for Visit: Chest pain with shortness of breath and dizziness History of Present Illness Vannesa Nation is a 58-year-old female with past medical history of a sthma, epilepsy, dementia, , and tonsillectomy who presents to the ED with chest discomfort, shortness of breath, and dizziness x7 days. Patient reports that the chest discomfort was radiating to the left arm. Also states that she has been having dizziness where she feels like she is falling but has not fallen. Daughter Jacklyn at the bedside and states that her mom lives with the her sister. Patient denies any recent travels, recent sick contacts, recent ingestion of spoiled food, fever, chills, lightheadedness, weakness, abdominal pain, nausea, vomiting, or urinary symptoms. 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 Dad with brain cancer and diabetes.) Smoke: # pack years (Vape) ALCOHOL: none Drugs: None Lives: with Family Domestic Violence: Neg Review of Systems Constitutional: Yes: Other Respiratory: Shortness of breath Cardiovascular: Chest Pain Allergies: Coded Allergies: Belladonna (Verified Allergy, Unknown, 07/14/24) Exam Vital Signs Vital Signs Date Time Temp Pulse Resp B/P (MAP) Pulse Ox O2 Delivery O2 Flow Rate FiO2 10/28/24 10:21 63 18 99 Room Air 10/28/24 09:44 98.1 156/78 (104) 98.1 General Appearance: Alert, Oriented X3, Cooperative, No acute distress HEENT: Atraumatic, PERRLA, EOMI, Mucous membr. moist/pink Respiratory: Clear to auscultation, Normal air movement Cardiovascular: Normal S1, Normal S2, No murmurs Abdominal: Normal bowel sounds, Soft Extremities: Normal pulses, No tenderness/swelling Skin: No significant lesion Neuro: Normal gait, Normal speech, Strength at 5/5 X4 ext, Normal tone, Sensation intact Psych/Mental Status: Mental status NL, Mood NL Labs/Xrays Labs Test 10/28/24 12:15 10/28/24 07:20 Range/Units Troponin I High Sensitivity < 3 L </=34 ng/L White Blood Count 4.8 4.4-10.8 10^3/uL Red Blood Count 4.93 4.0-5.20 10^6/uL Hemoglobin 12.9 12.2-16.2 g/dL Hematocrit 38.8 36.0-46.0 % Mean Corpuscular Volume 78.7 L 80.0-100.0 fL Mean Corpuscular Hemoglobin 26.2 L 28.0-32.0 pg Mean Corpuscular Hemoglobin Concent 33.2 32.0-36.0 g/dL Red Cell Distribution Width 18.2 H 11.8-14.3 % Platelet Count 271 140-450 10^3/uL Mean Platelet Volume 8.2 6.9-10.8 fL Neutrophils (%) (Auto) 56.9 37.0-80.0 % Lymphocytes (%) (Auto) 34.8 10.0-50.0 % Monocytes (%) (Auto) 6.4 0.0-12.0 % Eosinophils (%) (Auto) 1.3 0.0-7.0 % Basophils (%) (Auto) 0.6 0.0-2.0 % Neutrophils # (Auto) 2.7 1.6-8.6 10 ^3/uL Lymphocytes # (Auto) 1.7 0.4-5.4 10 ^3/uL Monocytes # (Auto) 0.3 0-1.3 10 ^3/uL Eosinophils # (Auto) 0.1 0-0.8 10 ^3/uL Basophils # (Auto) 0 0-0.2 10 ^3/uL Nucleated Red Blood Cells 0.1 % Sodium Level 140 136-145 mmol/L Potassium Level 3.8 3.5-5.1 mmol/L Chloride Level 104 98-107 mmol/L Carbon Dioxide Level 25 20-31 mmol/L Anion Gap 11 5-15 Blood Urea Nitrogen 13 9-23 mg/dL Creatinine 0.78 0.550-1.02 mg/dL Glomerular Filtration Rate Calc 88 >90 mL/min BUN/Creatinine Ratio 16.7 10.0-20.0 Serum Glucose 104 74-106 mg/dL Calcium Level 10.0 8.7-10.4 mg/dL Total Bilirubin 0.4 0.2-1.0 mg/dL Aspartate Amino Transferase (AST) 24 13-40 U/L Alanine Aminotransferase (ALT) 16 7-40 U/L Alkaline Phosphatase 126 H 46-116 U/L Total Protein 7.3 5.7-8.2 g/dL Albumin 3.8 3.2-4.8 g/dL Lipase 36 12-53 U/L CT HEAD WITHOUT CONTRAST INDICATION: Rule out TIA stroke intracranial bleed EXAM DATE: 10/28/2024 07:45 AM COMPARISON: MRI BRAIN HEAD WO CONTRAST on DOS: 07/17/24, CT HEAD WITHOUT CONTRAST on DOS: 07/14/24 RADIATION DOSE: CTDIvol: 49.45 mGy, DLP: 792.9 mGy*cm PROCEDURE: CT scans of the head were obtained from the vertex to the skull base. Sagittal and coronal reconstructions were provided. All CT scans at this medical facility are performed using dose modulation techniques as appropriate to a performed exam including the following: Automated exposure control was utilized; adjustment of the MA and/or KV according to patient size; and use of iterative reconstruction technique. FINDINGS: There is sulcal and ventricular prominence. The brainshows normal morphology and vera-white matter differentiation, without intracranial hemorrhage, extra-axial fluid collection, mass effect or acute large vessel infarct. The ventricles are normal in size. The basal cisterns are patent. The skull and visible facial bones are intact. The paranasal sinuses, mastoid air cells and middle ear cavities are well-aerated. The soft tissues of the scalp are unremarkable. IMPRESSION: No acute intracranial abnormality. CHEST RADIOGRAPH Indication: Chest pain Technique: Frontal and lateral view of the chest was obtained Comparison: XY CHEST XRAY 1 VIEW on DOS: 07/14/24, CR CHEST 2 VIEW on DOS: 09/29/23 FINDINGS: Lines and Tubes: None Lungs: Clear Pleura: No effusion. No pneumothorax. Cardiomediastinal contours: Unremarkable Bones: Unremarkable IMPRESSION: No evidence of acute disease. SEPSIS Sepsis Screen Date sepsis recognized/suspect: Oct 28, 2024 Time Sepsis recognized/suspect: 0704 Recent Procedure: No On Antibiotic Therapy: No Respiratory Rate >20: No Heart Rate >90: No Temp<36 C (96.8 F) or >38.3 C: No SBP <90 or MAP <65 mmHG: No New Acute Mental Status Change: No Is the patient on CPAP, BIPAP,: No Physician Orders Electrocardigram (10/28/24 10:04) Chest Two Views Routine (10/28/24 07:39) Head Without Contrast (10/28/24 07:39) Vital Signs Date Time Temp Pulse Resp B/P (MAP) Pulse Ox O2 Delivery O2 Flow Rate FiO2 10/28/24 10:21 63 18 99 Room Air 10/28/24 10:06 55 10/28/24 09:44 98.1 63 18 156/78 (104) 99 98.1 10/28/24 08:05 61 10/28/24 07:04 97.2 79 17 151/81 98 97.2 Laboratory Tests Test 10/28/24 07:20 White Blood Count 4.8 10^3/uL (4.4-10.8) Medications Medications Dose Ordered Sig/Elizabet Route Start Time Stop Time Status Last Admin Dose Admin Aspirin 325 mg ONCE ONCE PO 10/28/24 07:15 10/28/24 07:16 DC 10/28/24 07:45 325 MG Assessment/Plan Assessment/Plan Assessment Chest pain radiating to the left arm rule out ACS Acute on asthma exacerbation Autonomic imbalance Vape use History of polysubstance abuse and recovering addict for the last 4 years History of epilepsy History of dementia Recovering addict Plan Admit to tele Antiemetics Pain management ACS workup Aspirin + statin Chest x-ray noted CT head noted Lipase EKG Troponin noted negative x3 Echo ordered Last echo on 07/15/2024 EF 65% Orthostatics Carotid ultrasound Duo nebs Diet Home medications reconciled DVT prophylaxis-not indicated patient ambulating PUD prophylaxis-PPIs Discussed plan of care with patient, patient's daughter, and nurse Rounding team to consider neurology consult if dizziness worsens Counseled patient on continuous cessation of polysubstance use Counseled patient on cessation of a abuse [id number] Behavior change smoking greater than 10 minutes about use of other options also gave option of nicotine patch 22811 Preventive counseling healthy eating habits, physical activity, and regular checkups Plan discussed with: Patient, Daughter Date of Service: Oct 28, 2024 Billing Provider: MARSHA PUGA Common Visit Codes: [id number] INP/OBS CARE (HIGH) Secondary Visit Codes: [id number] COUNSELING IND, [id number] CHNG SMOKING >10MIN MARSHA PUGA Oct 28, 2024 13:20
[2024-10-28] MEDS ORDERED: ONDANSETRON HCL 4 MG/2 ML VIAL IV PRN (15:15)
[2024-10-28] MEDS ORDERED: ACETAMINOPHEN 325 MG TAB PO PRN (15:15)
[2024-10-28] MEDS ORDERED: NITROGLYCERIN 0.4 MG SL TAB SL PRN ×2 (15:15)
[2024-10-28] MEDS ORDERED: MORPHINE SULFATE 4 MG/ML SYR/VIAL IV PRN (15:15)
[2024-10-28] MEDS ORDERED: MORPHINE SULFATE INJ 2 MG/ml SYRG IV PRN (15:15)
--- NOTE | 2024-10-28 15:52 | DVH ---
Carotid Duplex Date: 10/28/2024 03:31 PM Clinical History: dizziness Comparison: US ECHO 2D MODE CARDIAC DOP on DOS: 07/15/24, US CAROTID DUPLX W COLOR DOP on DOS: 07/14/24 Technique: Duplex Doppler evaluation of the extracranial carotid and vertebral arteries including col or Doppler and spectral/pulsed waveform analysis was performed. Findings: RIGHT SIDE: The peak systolic velocities are 73 cm/s in the distal CCA and 47 cm/s in the proximal ICA.The ICA/CC A ratio is less than 1. The external carotid artery is patent with peak systolic velocity of 90 cm/s proximally. There is appropriate antegrade flow in the right vertebral artery. LEFT SIDE: The peak systolic velocities are 67 cm/s in the distal CCA and 72 cm/s in the proximal ICA.. The ICA/ CCA ratio is less than 2. The external carotid artery is patent with peak systolic velocity of 91 cm/s proximally. There is appropriate antegrade flow in the left vertebral artery. IMPRESSION: 1. No hemodynamically significant stenosis noted in the right carotid system. 2. No hemodynamically significant stenosis noted in the left carotid system. 3. Reference: Radiology 2003; 229:340-34
[2024-10-28 21:50] VITALS: BP 154/92; PULSE 69; RESP 18; TEMP 97.2; O2SAT 100
[2024-10-28] MEDS: ARIPIPRAZOLE 10 MG PO SCH (22:00)
[2024-10-28] MEDS: ATORVASTATIN 20 MG TAB PO SCH (22:43)
[2024-10-29] VITALS (8 sets, daily range): BP systolic 117–151; BP diastolic 78–105; PULSE 55–71; RESP 12–18; TEMP 97.4–98.3; O2SAT 92–98
[2024-10-29] MEDS: PANTOPRAZOLE 40 MG TAB PO SCH (06:01)
[2024-10-29 06:18] LABS: Potassium 4.5 mmol/L (3.5-5.1); Sodium 142 mmol/L (136-145)
[2024-10-29 06:19] LABS: Anion Gap 6 (5-15); Calcium 9.8 mg/dL (8.7-10.4); Carbon Dioxide 29 mmol/L (20-31); Hematocrit 35.5 % (36.0-46.0); Hemoglobin 12.0 g/dL (12.2-16.2); Mean Corpuscular Hemoglobin 26.4 pg (28.0-32.0); Mean Corpuscular Volume 78.4 fL (80.0-100.0); Nucleated Red Blood Cells % 0.0 %
[2024-10-29 06:24] LABS: Glucose 93 mg/dL (74-106); Triglycerides 85 mg/dL (< 150)
[2024-10-29 06:25] LABS: BUN/Creatinine Ratio 28.2 (10.0-20.0); Blood Urea Nitrogen 20 mg/dL (9-23); Magnesium 1.9 mg/dL (1.6-2.6)
[2024-10-29 06:26] LABS: Cholesterol 180 mg/dL (< 200)
[2024-10-29 06:39] LABS: Chloride 107 mmol/L (98-107); HDL Cholesterol 60 mg/dL (40-59)
[2024-10-29] MEDS: CHLORTHALIDONE 25 MG TAB PO SCH (10:55)
[2024-10-29] MEDS ORDERED: MORPHINE SULFATE INJ 2 MG/ml SYRG IV PRN (11:00)
--- NOTE | 2024-10-29 11:34 | DVHPN2 ---
Subjective denies any chest pain now had chest pressue for last week Changes from previous H/P or p: No Changes Cardiovascular: Chest Pain Respiratory: Shortness of breath Objective Vitals Vital Signs Date Time Temp Pulse Resp B/P (MAP) Pulse Ox O2 Delivery O2 Flow Rate FiO2 10/29/24 09:00 97.9 66 12 146/105 (119) 96 97.9 10/28/24 21:36 Room Air* 0 21 Intake/Output Intake and Output 10/29/24 07:00 Intake Total 105 ml Balance 105 ml Intake Oral 105 ml General Appearance: Alert, Oriented X3, Cooperative, No acute distress Cardiovascular: Regular rate, Normal S1, Normal S2 Abdomen: Normal bowel sounds Musculoskeletal: Normal sensory function Neuro: Normal gait, Normal speech, Strength at 5/5 X4 ext, Normal tone, S ensation intact, Cranial nerves 3-12 NL Psych/Mental Status: Mental status NL, Mood NL Medications Current Medications Medications Dose Ordered Sig/Elizabet Route Start Time Stop Time Status Last Admin Dose Admin Aspirin 81 mg DAILY PO 10/29/24 10:00 10/29/24 10:54 81 MG Atorvastatin Calcium 40 mg HS PO 10/28/24 22:00 10/28/24 22:43 40 MG Acetaminophen 650 mg Q6HP PRN PO 10/28/24 15:15 Ondansetron HCl 4 mg Q4HP PRN IV 10/28/24 15:15 Nitroglycerin 0.4 mg Q5MINP PRN SL 10/28/24 15:15 Chlorthalidone 25 mg DAILY PO 10/29/24 10:00 10/29/24 10:55 25 MG Pantoprazole Sodium 40 mg DAILY@0700 PO 10/29/24 07:00 10/29/24 06:01 40 MG Patient Own Medication 1 tab HS PO 10/28/24 22:00 Buspirone HCl 15 mg HS PO 10/28/24 22:00 10/28/24 22:43 15 MG Morphine Sulfate 2 mg Q30M PRN IV 10/29/24 11:00 Laboratory Results Laboratory Tests 10/29/24 05:27 Chemistry Test 10/29/24 05:27 Calcium Level 9.8 mg/dL (8.7-10.4) Magnesium Level 1.9 mg/dL (1.6-2.6) Lipid panel Test 9/21/25 05:27 Cholesterol Level 180 mg/dL (< 200) HDL Cholesterol 60 mg/dL (40-59) H Triglycerides Level 85 mg/dL (< 150) Labs and/or images reviewed: Labs reviewed by me, Image(s) reviewed by me Assessment/Plan Assessment/Plan chest pain- clinically sounds like angina- consult cardiology dd- gerd/dc home nsaid/on ppi htn stable h/o seizures ataxia- check level of dilantin before resuming h/o drug/polysubstance abuse brain damage from above- doubt dementia sugars are normal dc metformin/dc semaglutamide- per daughter not on this- educated fatty liver Plan discussed with: Patient, Daughter My Orders Orders - TERENCE MOREL MD Procedure Category Date Status Time Morphine Sulfate PHA 10/29/24 In Process Injection 11:[address] Tablet PHA 10/29/24 Logged (Depakote "Dr" Tabl 22:00 Phenytoin (Dilantin) LAB 10/29/24 Transmitted 11:14 Date of Service: Oct 29, 2024 Billing Provider: TERENCE MOREL MD Common Visit Codes: [id number] INP/OBS CARE(HIGH) TERENCE MOREL MD Oct 29, 2024 11:34
[2024-10-30 05:00] VITALS: BP 120/78; PULSE 58; RESP 18; TEMP 97.1; O2SAT 100
[2024-10-30 08:58] VITALS: BP 150/100; PULSE 62; RESP 12; TEMP 98.4; O2SAT 97
[2024-10-30 12:38] VITALS: BP 146/89; PULSE 62; RESP 12; TEMP 98.1; O2SAT 100
[2024-10-30 17:00] VITALS: BP 130/86; PULSE 61; RESP 16; TEMP 98.1; O2SAT 95
--- NOTE | 2024-10-30 17:09 | DVHDS2 ---
Discharge Summary Date of Admission Oct 28, 2024 at 15:11 Date of Discharge: Oct 30, 2024 Labs/Diagnostic Data: Laboratory Results Test 10/29/24 05:27 10/28/24 07:20 White Blood Count 4.8 10^3/uL (4.4-10.8) Red Blood Count 4.54 10^6/uL (4.0-5.20) Hemoglobin 12.0 g/dL (12.2-16.2) Hematocrit 35.5 % (36.0-46.0) Mean Corpuscular Volume 78.4 fL (80.0-100.0) Mean Corpuscular Hemoglobin 26.4 pg (28.0-32.0) Mean Corpuscular Hemoglobin Concent 33.7 g/dL (32.0-36.0) Red Cell Distribution Width 17.7 % (11.8-14.3) Platelet Count 231 10^3/uL (140-450) Mean Platelet Volume 8.2 fL (6.9-10.8) Neutrophils (%) (Auto) 54.6 % (37.0-80.0) Lymphocytes (%) (Auto) 35.2 % (10.0-50.0) Monocytes (%) (Auto) 8.8 % (0.0-12.0) Eosinophils (%) (Auto) 1.0 % (0.0-7.0) Basophils (%) (Auto) 0.4 % (0.0-2.0) Neutrophils # (Auto) 2.6 10 ^3/uL (1.6-8.6) Lymphocytes # (Auto) 1.7 10 ^3/uL (0.4-5.4) Monocytes # (Auto) 0.4 10 ^3/uL (0-1.3) Eosinophils # (Auto) 0 10 ^3/uL (0-0.8) Basophils # (Auto) 0 10 ^3/uL (0-0.2) Nucleated Red Blood Cells 0.0 % Sodium Level 142 mmol/L (136-145) Potassium Level 4.5 mmol/L (3.5-5.1) Chloride Level 107 mmol/L (98-107) Carbon Dioxide Level 29 mmol/L (20-31) Anion Gap 6 (5-15) Blood Urea Nitrogen 20 mg/dL (9-23) Creatinine 0.71 mg/dL (0.550-1.02) Glomerular Filtration Rate Calc 98 mL/min (>90) BUN/Creatinine Ratio 28.2 (10.0-20.0) Serum Glucose 93 mg/dL (74-106) Calcium Level 9.8 mg/dL (8.7-10.4) Magnesium Level 1.9 mg/dL (1.6-2.6) Troponin I High Sensitivity < 3 ng/L (</=34) Triglycerides Level 85 mg/dL (< 150) Cholesterol Level 180 mg/dL (< 200) LDL Cholesterol 112 mg/dL (< 100) HDL Cholesterol 60 mg/dL (40-59) Phenytoin (Dilantin) Level 20.3 ug/mL (10-20) Valproic Acid Level 15.6 ug/mL (50-100) Total Bilirubin 0.4 mg/dL (0.2-1.0) Aspartate Amino Transferase (AST) 24 U/L (13-40) Alanine Aminotransferase (ALT) 16 U/L (7-40) Alkaline Phosphatase 126 U/L (46-116) Total Protein 7.3 g/dL (5.7-8.2) Albumin 3.8 g/dL (3.2-4.8) Lipase 36 U/L (12-53) Other Laboratory Tests 10/29/24 05:27 Brief Hx & Hospital Course: 58-year-old female with past medical history of asthma, epilepsy, dementia, C- section, and tonsillectomy who presents to the ED with chest discomfort, shortness of breath, and dizziness x7 days. Patient reports that the chest discomfort was radiating to the left arm. Also states that she has been having dizziness where she feels like she is falling but has not fallen. Daughter Jacklyn at the bedside and states that her mom lives with the her sister. 10/30: Troponins negative, EKG sinus bradycardia, asymptomatic. Possible GERD symptoms. We will stop hydrochlorothiazide and start losartan 25 instead. Patient to follow up with [place] clinic to review blood pressure log. Otherwise continue all other medications, including psychiatric medications and neurologic medications. Patient takes hydroxyzine for anxiety, which could cause anticholinergic effects causing possible chest pain. Vital signs stable safe for discharge as per plan below. Diagnosis: Chest pain, likely costochondritis ACS ruled out GERD possible Still angina possible Acute asthma exacerbation, resolved Autonomic imbalance , ruled out Vape use History of polysubstance abuse and recovering addict for the last 4 years History of epilepsy History of dementia Recovering drug addiction plan: - stop hydrochlorothiazide, start losartan 25 mg daily - Start Protonix 40 daily - continue other home medications - follow up with PCP to review discharge. Condition at Discharge: Fair Final Diagnosis/Problems List Chest pain, likely costochondritis ACS ruled out GERD possible Still angina possible Acute asthma exacerbation, resolved Autonomic imbalance , ruled out Vape use History of polysubstance abuse and recovering addict for the last 4 years History of epilepsy History of dementia Recovering drug addiction Discharge Disposition: Home Discharge Instruct/Medications Scheduled Aripiprazole (Aripiprazole Odt), 1 TAB PO HS, (Reported) Buspirone Hcl (Buspirone Hcl), 1 TAB PO HS, (Reported) Chlorthalidone (Chlorthalidone), 1 TAB PO DAILY, (Reported) Divalproex Sodium (Depakote), 1 TAB PO BID Fluticasone Furoate (Inhalatio (Arnuity Ellipta), 1 PUFF INH DAILY, (Reported) Hydroxyzine Pamoate (Hydroxyzine Pamoate), 1 CAP PO BID, (Reported) Pantoprazole Sodium Sesquihydr (Pantoprazole Sodium), 1 TAB PO DAILY, (Reported) Phenytoin Sodium (Dilantin Capsule), 300 MG PO Q12HR Scheduled PRN Albuterol Sulfate (Albuterol Sulfate Hfa), 2 PUFF INH for SHORTNESS OF BREATH, (Reported) Discontinued Medications Etodolac (Etodolac), 1 TAB PO BID PRN for PAIN, (Reported) Metformin Hydrochloride (Glumetza), 1 TAB PO BID, (Reported) Semaglutide (Rybelsus), 1 TAB PO DAILY, (Reported) Spironolactone (Spironolactone), 1 TAB PO DAILY, (Reported) Discharge Statement: "Patient was advised to return to the ER or call 911 if any headaches, dizziness, shortness of breath, chest pain, abdominal pain, bleeding, fevers, or worsening of medical condition. Patient was counseled about treatment plan, medications, possible side effects, patientverbalized understanding. All questions were answered to the best of my ability. This discharge took greater then 30 minutes in planning, reviewing documentation, counseling the patient, and discussing with other team members." ASSESSMENT ASSESSMENT Assessment Date of Service: Oct 30, 2024 Billing Provider: SHAWN PRATT MD Common Visit Codes: [id number] DISCH DAY >30min SHAWN PRATT MD Oct 30, 2024 17:09
[2024-10-30] MEDS ORDERED: LOS25T PO (17:10)
[2024-10-30] MEDS ORDERED: PANT40TA2 PO (17:10)
[2024-10-30 17:35] VITALS: BP 130/86; PULSE 57; RESP 18; TEMP 36.7; O2SAT 98
[2024-10-30] MEDS ORDERED: PHENYTOIN SODIUM 100 MG CAP PO SCH (22:00)
--- NOTE | 2024-10-31 15:26 | ECG ---
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
== END 2024-10-30 19:00 | disposition home or self-care (01) | DRG 206 ==
LOC: ER 07:01 → OVERFLOW 15:11 → TELE-WESTW 21:55
PROVIDERS: ADMIT Student in an Organized Health Care Education/Training Program; ATTEND Student in an Organized Health Care Education/Training Program
DX: M94.0 Chondrocostal junction syndrome [Tietze] (principal); J45.901 Unspecified asthma with (acute) exacerbation; F03.94 Unspecified dementia, unspecified severity, with anxiety; I20.9 Angina pectoris, unspecified; I10 Essential (primary) hypertension; E11.9 Type 2 diabetes mellitus without complications; F17.200 Nicotine dependence, unspecified, uncomplicated; G40.909 Epilepsy, unspecified, not intractable, without status epilepticus; R27.0 Ataxia, unspecified; G93.9 Disorder of brain, unspecified; K21.9 Gastro-esophageal reflux disease without esophagitis; Z83.3 Family history of diabetes mellitus; Z80.8 Family history of malignant neoplasm of other organs or systems; Z88.8 Allergy status to other drugs, medicaments and biological substances; Z79.4 Long term (current) use of insulin; Z79.82 Long term (current) use of aspirin; Z79.899 Other long term (current) drug therapy; Z79.84 Long term (current) use of oral hypoglycemic drugs
CPT/HCPCS: 36415; 70450; 71046; 80048; 80053; 80061; 80164; 80185; 83690; 83735; 84484; 85025; 93005; 93886; G0378